=== PATIENT | female | born 1960 | race African-American/Black ===

== ENCOUNTER 2024-02-26 22:33 | Inpatient (IN) | payer OTHER, SELFPAY ==
[2024-02-26] VITALS (15 sets, daily range): BP systolic 181–222; BP diastolic 100–131; BMI 28.3
--- NOTE | 2024-02-26 20:54 | ED.GENMED ---
History of Present Illness
General
Chief Complaint: Swelling
Source: patient
Exam Limitations: none
Time Seen by Provider: 02/26/24 20:35
History of Present Illness
History of Present Illness:
This is a 63 year old female that comes in with c/o bilateral leg swelling and abd swelling. [facility]. States that she lives in [place] and about 2 weeks ago she started with swelling. State that she
then came to [place] on . State that the swelling has increased and is into her abd. States that she is occasionally SOB now the the abd swelling. State that she did take Metoprolol, Amlodipine and HCTZ but has not take this as she would not go out
when COVID started and her PCP would not reorder her medication unless she came in. Denies any fever, chills, chest pain, abd pain, nausea, vomiting, diarrhea, headache, dizziness, urinary burning.
Past History
Past History
ED Past Medical History: HTN; Negative Asthma, Hypercholesterolemia or NIDDM
ED Past Surgical History: None
Social History
Tobacco: Smoker
Alcohol: Occasional
Personal:
Living: alone
Review of Systems
Review of Systems
All Other Systems: ROS reviewed and negative except as documented in HPI and ROS
Constitutional: Reports no symptoms; Denies fever or chills
EENT: Reports no symptoms
Respiratory: Reports trouble breathing; Denies cough
Cardiac: Reports no symptoms; Denies chest pain
ABD/GI: Reports other (abd swelling ); Denies abdominal pain, nausea, vomiting or diarrhea
: Reports no symptoms; Denies dysuria, frequency or urgency
Musculoskeletal: Reports edema (Bilateral legs into the abd)
Skin: Reports no symptoms
Neurological: Reports no symptoms; Denies dizzy or headache
Psychiatric: Reports no symptoms
Phy Exam
General Physical Exam
General Presentation: no apparent distress
General age: appears stated age
General Skin: warm and dry
General Habitus: elderly
General Mental: alert
General Hydration: appears well hydrated
ENT Exam
ENT Exam: TM's normal, pharynx normal and neck supple
Eye Exam
Eye Exam: EOMI
Cardiovascular Exam
Cardiovascular Exam: regular rate/rhythm, no murmur and normal peripheral pulses
Pulmonary Exam
Pulmonary Exam: lungs clear, no respiratory distress, no rales, chest non tender, no crackles, no rhonchi, no wheezing and no cough
Gastrointestinal Exam
Gastrointestinal Exam: non tender, soft, no organomegaly, no pulsatile mass and other (Hypoactive bowel sounds, Abd pitting edema on flanks. )
Musculoskeletal Exam
Musculoskeletal Exam: full ROM and edema (+2 pitting edema from feet to thighs and into the abd. )
Skin Exam
Skin Exam: normal color, warm/dry, no petechia and other (Large palpable breast mass right sided from the 9pm to midnight position. )
Psychiatric Exam
Psychiatric Exam: normal mood/affect
Scores
Heart Failure Risk
Heart Failure Risk Score: Yes
History of Stroke or TIA: No
History of intubation for respiratory distress: No
Heart rate on ED arrival >/= 110: No
SaO2 <90% on arrival on room air: No
HR >/=110 during 3min walk test (or too ill to perform test): Yes
ECG has acute ischemic changes: No
Urea >/=12mmol/L (BUN 33.6mg/dL): No
Serum CO2>/=35mmol/L: No
Troponin I or T elevated to MO Level (0.4mg/dL): Yes
NT-proBNP >/=5,000ng/L (5,000pg/ml): Yes
HF Risk Score: 5
Admission Status: VERY HIGH RISK 39.8% Consider admission to hospital
Course
Orders/Labs/Results
Orders:
Orders
02/26/24 Breakfast
Cholesterol Lowering
Fluid Restriction: 1440 mL/day (48 oz)
Cholesterol Lowering: Sodium, 2 Gram
02/26/24 20:17
Electrocardiogram (*1) Urgent
Reason for Study: Other
Other Reason for Exam: Respiratory Distress
EKG- Treatment ONCE
02/26/24 20:54
CR Chest - 2 Views Urgent
Comment:
Reason For Exam: sob
US Legs, Bilateral [US Periph Venous LOWER Ext Fernando] Urgent
Comment:
Reason For Exam: sWELLING
02/26/24 21:00
Complete Blood Count/With Diff Urgent
Comprehensive Metabolic Panel Urgent
Ferritin Urgent
Comment: ADD ON
Iron Urgent
Comment: ADD ON
Magnesium Urgent
Comment: ADDON
NT-proBNP Urgent
TSH Reflex To Free T4 Urgent
Comment: ADD ON
Total Iron Binding Urgent
Comment: ADD ON
Troponin I Urgent
02/26/24 21:35
Furosemide [Lasix] 80 mg IV NOW STA
02/26/24 21:41
Amlodipine [Norvasc] 10 mg PO NOW STA
02/26/24 22:02
Add On- LAB Routine
Tests Added?: iron, ferritin, TIBC, iron % saturation
02/26/24 22:03
Add On- LAB Routine
Tests Added?: TSH with reflex to T4
02/26/24 22:15
Nitroglycerin 100 mg/250 ml [Nitroglycerin Premix] 100 mg in 250 ml IV PER PROTOCOL
Initial dose in mcg/min, then titrate:: 5
Titrate to keep:: Other
Titrate to keep other:: SBP < 180
Titrate by mcg/min:: 5 mcg/min, may increase by 10 mcg/min if dose > 20 mcg/min
Frequency of titrations (minutes):: every 3-5 minutes
Maximum dose in mcg/min:: 200
Begin to taper infusion when:: Remained at goal for 2hrs
Taper by mcg/min:: 5 mcg/min
Frequency of taper (minutes) if patient maintains goal:: 30
Taper to off?: Yes
If infusion off & no longer maintaining goal:: Contact Provider
02/26/24 22:18
Admit/Transfer Patient As Directed
Co-Sign Provider:
Level of Care: Inpatient admission
Assign to:: IMU- Intermediate Care
Physician / Group: Mahi Tillman
Diagnosis: hypertensive emergency
Reason for Hospitalization: hypertensive emergency, heart failure
Expected length of stay greater than two midnights?: Yes
ELOS- Estimated Length of Stay in days: 3
I certify the patient meets the requirements for IP care: Yes
PRN Pain Medication Management As Directed
May give lesser potent ordered pain med per pt: Yes
preference::
Protocol:: Medication orders for pain may be administered in a
manner that supports deferring to patient preference
when the pt is:
- Requesting an ordered lesser potent pain medication.
Least to most potent pain medications are defined
as: acetaminophen < NSAID < tramadol < opioids
(morphine, oxycodone, hydromorphone).
- Requesting a lesser dose of the same medication IF
ORDERED.
- Requesting a less intrusive route of administration
if both routes are prescribed by the provider (PO <
IV).
02/26/24 22:19
Code Status As Directed
Resuscitation Status: Full Code
02/26/24 22:20
Add On- LAB Routine
Tests Added?: magnesium
Potassium Chloride [KCl] 20 meq PO NOW STA
02/26/24 23:00
Flush (0.9% Sodium Chloride) [Flush (Nss)] See Dose Instructions IV PER PROTOCOL
02/26/24 23:05
UA Reflex to Culture [Urinalysis Reflex To Culture] Routine
Date Specimen was Collected: 02/26/24
Time Specimen was Collected: 23:02
Urine Creatinine Routine
Date Specimen was Collected: 02/26/24
Time Specimen was Collected: 23:03
Urine Sodium Routine
Date Specimen was Collected: 02/26/24
Time Specimen was Collected: 23:03
02/26/24 23:16
CARDIOLOGY CONSULT Routine
Consulting Provider: Ladarius Morales
Was physician already notified: No
Reason for consult: hypertensive emergency, new heart failure
Consult Notification Routine
Specialty to Notify: Cardiology
HF DIETARY CONSULT Routine
HF EDUCATOR CONSULT Routine
Comment:
Activity As Directed
Activity Level: As Tolerated
Intake/ Output As Directed
Frequency: Per unit guidelines
Patient Education As Directed
Type: CHF folder
Comment: give on admission. Document in Interdisciplinary Education record
Sleep Apnea Assessment by RN As Directed
Comment:
Physician Instructions:
Vital Signs As Directed
Frequency: Other
Additional Instructions:: Q12 or per unit guidelines if more frequent.
Weight As Directed
Frequency: Daily
Type of Scale: Standing Scale
Comment: Daily morning weight. If unable to stand, use balanced bed scale.
Weight As Directed
Frequency: Once
Type of Scale: Standing Scale
Comment: Upon Admission. If unable to stand, use balanced bed scale.
Pulse Ox/cont/shift [RESP] Routine
Quantity: 1
Special Instructions: Daily pulse oximetry at rest. If greater than 92% at rest also obtain pulse oximetry
while ambulating as tolerated.
DX Deep Vein Thrombosis Video Routine
02/27/24 00:00
Troponin I Urgent
02/27/24 06:00
Echo 2D MMode Color/Doppler IN AM
Reason for Study: hypertensive emergency
Basic Metabolic Panel IN AM
Cardiovascular Evaluation IN AM
Complete Blood Count/No Diff IN AM
Glycohemoglobin (HgbA1c) IN AM
Wgvum-[id number]-Pcjdkdo IN AM
Magnesium IN AM
Troponin I IN AM
02/27/24 08:00
Furosemide [Lasix] 40 mg IV BID AT 0800,1600
Heparin 5,000 units SC Q12
NIFEdipine EXTENDED RELEASE [Procardia Xl (Extended Release)] 30 mg PO DAILY
02/28/24 06:00
Basic Metabolic Panel IN AM
02/29/24 06:00
Basic Metabolic Panel IN AM
Abnormal Lab Results
02/26/24
21:00
RBC 3.80 L 10^6/uL
(4.20-5.40)
Hgb 9.3 L g/dL
(12.0-16.0)
Hct 29.7 L %
(37.0-47.0)
MCV 78.2 L fL
(81.0-99.0)
MCH 24.5 L pg
(27.0-31.0)
MCHC 31.3 L g/dL
(33.0-37.0)
RDW 20.6 H %
(11.5-14.5)
Absolute Lymphs (auto) 0.7 L 10^3/uL
(1.2-3.4)
Neutrophils % 77.3 H %
(42.2-75.2)
Lymphocytes % 11.9 L %
(20.5-51.1)
Chloride 109 H mmol/L
(98-107)
BUN 28 H mg/dl
(7-17)
Creatinine 1.6 H mg/dL
(0.6-1.0)
Iron 25 L ug/dl
(37-170)
% Saturation 8 L %
(20-50)
Troponin I 0.053 H* ng/ml
Albumin 3.2 L g/dl
(3.5-5.0)
02/26/24 21:00
02/26/24 21:00
H/H low, Anemia, Chloride slightly elevated. Acute renal insufficiency, Troponin elevated at 0.053, Pro-BNP >27,000
Vital Signs
Initial and Last Documented VS:
Initial Vital Signs
Temp Pulse Resp BP Pulse Ox
98.5 F 108 20 222/131 98
02/26/24 20:12 02/26/24 20:12 02/26/24 20:12 02/26/24 20:12 02/26/24 20:12
Last Documented Vital Signs
Temp Pulse Resp BP Pulse Ox
98.5 F 95 20 195/113 95
02/26/24 20:12 02/26/24 23:00 02/26/24 23:00 02/26/24 23:00 02/26/24 22:51
MDM/Problems Addressed
Differential Diagnosis Includes:
CHF,
MDM/Problems Addressed:
This is a 63 year old female that comes in with c/o swelling from the feet, into the legs and abd. States that this started about 2 weeks ago when she was in [place] and then she came here on 02/14/24. States that she as on Medication but COVID
messed her up as the PCP would not reorder medication for her.
Will get labs. Chest x-ray, and US.
Back into see patient. Explained that she will be admitted. Explained that she is in CHF and that her BP is very elevated.
Chronic conditions affecting care: HTN
Acute Exacerbation and/or Progression of Chronic Illness: HTN
*Radiology
Radiology exam reviewed: radiology read reviewed (cHEST-Congestive heart failure US-No evidence of right or left lower extremity deep venous thrombosis. Pulsatile waveforms suggesting possibility of elevated right-sided heart pressure or tricuspid
insufficiency. Large amount of bilateral lower extremity edema. )
*Pulse Oximetry
Patient hypoxic: no
*EKG
Interpreted by ED Provider?: Yes
Heart Rate: 89
Rate: normal
Rhythm: sinus
[place]: normal axis
Interval: normal interval
QRS Pattern: normal QRS
Ischemia: T-wave inversion (V5, V6, )
*Linux Kernel Engineer Interpretation
Rate: normal
Heart Rate: 93
Rhythm: sinus
*Critical Care Note
Total Time (30-74mins, 75-104mins- exclusive of procedures): Not Applicable
ED Attending Note
-
Portions of this chart may have been created with voice recognition software.� Occasional wrong word or��sound alike� substitutions may have occurred due to the inherent limitations of voice recognition software.
Discharge Plan
Departure
Patient Disposition: Admit
Date of Disposition: 02/26/24
Time of Disposition: 21:46
Admit to: Telemetry
Presentation/result/management discussed w/ accepting MD/DO: Hospitalist
Patient with high blood pressure during this ER visit?: Yes
Condition: Good
Covid-19: Not Applicable
Discharge Problem:
CHF (congestive heart failure), Hypertension, uncontrolled, Elevated troponin
Interventions
Interventions:
*Risk Screen - Suicide Last Done: 02/26/24 20:16
*General Assessment Last Done: 02/26/24 20:54
*Neglect/Abuse Screening Last Done: 02/26/24 20:16
ED- Fall Risk Assessment Last Done: 02/26/24 20:55
*ED COVID-19 Vaccine History Last Done: 02/26/24 20:16
ED- Cardiac Assessment Last Done: 02/26/24 20:55
ED- Pulmonary Assessment Last Done: 02/26/24 20:55
ED-Skin Assessment Last Done: 02/26/24 20:55
[2024-02-26 21:08] LABS: % Basophils 0.5 % (0-2); % Immature Granulocytes 0.3 % (0-0.5); % Lymphocytes 11.9 % (20.5-51.1); % Neutrophils 77.3 % (42.2-75.2); Absolute Eosinophils 0.1 10^3/uL (0-0.7); Absolute Lymphocytes 0.7 10^3/uL (1.2-3.4); Absolute Monocytes 0.6 10^3/uL (0.1-0.6); Absolute Neutrophils 4.8 10^3/uL (1.4-6.5); Hematocrit 29.7 % (37.0-47.0); Hemoglobin 9.3 g/dL (12.0-16.0); Mean Corp Hgb Conc. 31.3 g/dL (33.0-37.0); Mean Corpuscular Hgb 24.5 pg (27.0-31.0); Mean Corpuscular Volume 78.2 fL (81.0-99.0); Mean Platelet Volume 9.3 fL (7.4-10.4); Nucleated Red Blood Cells % 0 %; Platelet Count 291 10^3/uL (130-400); Red Cell Dist. Width 20.6 % (11.5-14.5); White Blood Cell Count 6.1 10^3/uL (4.8-10.8)
[2024-02-26 21:22] LABS: ALT (SGPT) 23 U/L (0-35); AST (SGOT) 31 U/L (14-36); Albumin 3.2 g/dl (3.5-5.0); Alkaline Phosphatase 124 U/L (38-126); Blood Urea Nitrogen 28 mg/dl (7-17); Calcium 8.5 mg/dl (8.4-10.2); Carbon Dioxide 23 mmol/L (22-30); Chloride 109 mmol/L (98-107); Estimated Creatinine Clearance 33 ml/min; Glucose 93 mg/dl (70-99); Potassium 3.8 mmol/L (3.5-5.1); Sodium 139 mmol/L (135-145); Total Bilirubin 0.7 mg/dl (0.2-1.3); Total Protein 6.3 g/dl (6.3-8.2); eGFR 35.79
[2024-02-26 21:34] LABS: NT-proBNP > 27000 pg/ml; Troponin I 0.053 ng/ml
[2024-02-26] MEDS: NORVASC 10 MG PO (21:48)
--- NOTE | 2024-02-26 21:48 | HPS.HSE ---
Addendum entered and electronically signed by Mahi Tillman MD 02/27/24 07:33:
typo; patient 63 yo woman
Original Note:
Family Physician
-
Family Physician: NOT KNOW UNKNOWN - PT DOES
Chief Complaint
-
swelling
History of Present Illness
Ms. Geovanna Gaspar is a 25 yo woman with hx HTN who presents to the ER with lower extremity and abdominal swelling.
Patient was prescribed Metoprolol, Amlodipine and HCTZ in past. She states she was due to see her PCP during Covid but missed appointment 2/2 isolation requirements and then never followed up over next 4 years, had appointment coming up. She lives
in [facility] and had plans to travel here to see family. She reports increased LE swelling prior to her flight last week. She has had increased lower extremity swelling up to her abdomen. + orthopnea and SOB with exertion. No chest
pain.
No headache. No focal weakness. No fevers/chills. No nausea/vomiting. No rash.
Medical History
Past Medical History
Past Medical History: Reports HTN
Past Surgical History: Reports Other
Social History
Tobacco: Smoker (7 cigarettes/day)
Alcohol: Occasional
Family History
Family History: Not pertinent
Allergies / Home Medications
Allergies reflects when Allergies were last updated in [employer].
Home Medications with original date entered in [facility]
Allergy/Medication List:
Allergies
Allergy/AdvReac Type Severity Reaction Status Date / Time
No Known Allergies Allergy Unverified 02/26/24 20:15
Home Medications
No Meds [No Current Medications] 02/26/24
Review of Systems
-
History Source: Patient
A 12 point ROS was completed and negative except as noted: Yes
Physical Exam
Vital Signs
Vital Signs
Temp Pulse Resp BP Pulse Ox
98.5 F 90 17 192/119 100
02/26/24 20:12 02/26/24 21:00 02/26/24 21:00 02/26/24 21:28 02/26/24 21:28
Physical Exam
General: No Apparent Distress and Conversant
HEENT: PERRLA
Respiratory: Rales
Cardiac: S1/S2, Regular Rhythm and JVD
GI: Non Tender and Other (edema )
Musculoskeletal: Edema, Left Lower Extremity and Edema, Right Lower Extremity
Skin: Warm and Dry; No Rash
Neuro: AO x 3
Psych: Calm
Laboratory Results
-
02/26/24 21:00
02/26/24 21:00
Laboratory Results
Total Bilirubin 0.7 mg/dl (0.2-1.3) 02/26/24 21:00
AST 31 U/L (14-36) 02/26/24 21:00
ALT 23 U/L (0-35) 02/26/24 21:00
Alkaline Phosphatase 124 U/L (38-126) 02/26/24 21:00
Troponin I 0.053 ng/ml H* 02/26/24 21:00
Data Reviewed
-
Diagnostic Radiology: Report Reviewed by me
Lab Data: Labs Reviewed by me
Impression/Plan
-
Ms. Geovanna Gaspar is a 25 yo woman with hx HTN who presents to the ER with lower extremity and abdominal swelling.
Triage VS: T 98.5, P 108, RR 20, BP 222/131, SpO2 98%
LABS: WBC 6.1, Hg 9.3, PLT 291, Na 139, K+ 3.8, Cl 109, BUN 28, Cr 1.6, liver enzymes WNL, Trop 0.053
MAR: amlodipine 10mg PO x 1, lasix 80mg IV x 1
EKG: NSR @ 89, poor R wave progression, TWI lateral leads, T W flattening anterior leads
CXR
IMPRESSION:
Congestive heart failure.
Hypertensive Emergency
Non-[place] Troponin Elevation
Heart Failure, Unknown EF
-admit to IMU
-s/p amlodipine in ER; will take days until full effect
-BP 222/131 at triage, now 190's. Will start IV nitroglycerin gtt in setting of heart failure with goal SBP 170's overnight
-start daily nifedipine tomorrow AM
-lasix 80mg IV ordered in ER
-continue 40mg IV BID starting tomorrow
-daily weights, strict I/O, fluid restriction
-TTE
-F/U LE US ordered now
-trend Troponins
-cardiology consult
CAMI versus CKD
-urine studies
-monitor closely with diuresis
DVT PPx hep subQ
FULL CODE
Total Critical Care Time 45 minutes. I was immediately available to the patient and staff. I personally examined, reviewed labs, diagnostic images/reports, interpretations, treatment plans, discussed patient care with other providers and family
or caregivers (if patient is unable to make decisions), entered orders as appropriate and documented the medical record.
[2024-02-26] MEDS: LASIX 80 MG IV (22:33)
[2024-02-26] MEDS: KCL 20 MEQ PO (22:38)
[2024-02-26 22:41] LABS: Iron 25 ug/dl (37-170)
[2024-02-26] MEDS: NITROGLYCERIN PREMIX 250 IV (22:41)
[2024-02-26 22:50] LABS: Percent Saturation 8 % (20-50); Total Iron Binding Capacity 306 ug/dl (265-497)
[2024-02-26 23:12] LABS: Urine Albumin Trace (Neg - Trace); Urine Bilirubin Negative (Negative); Urine Character Clear (Clear); Urine Color Yellow; Urine Glucose Negative (Negative); Urine Ketone Negative (Negative); Urine Leukocyte Trace (Negative); Urine Nitrite Positive (Negative); Urine Occult Blood Trace (Negative); Urine Specific Gravity 1.015 (<1.030); Urine Urobilinogen Negative (Neg - 1+)
[2024-02-26 23:26] LABS: TSH Reflex To Free T4 2.79 uIU/ml (0.47-4.68)
[2024-02-26 23:27] LABS: Urine Sodium 102 mmol/L (30-90)
[2024-02-26 23:30] LABS: Ferritin 26.4 ng/ml (11.1-264.0)
[2024-02-26 23:54] LABS: Urine Amorphous Seen; Urine Mucus Moderate; Urine Squamous Cell >30 /LPF (Few)
[2024-02-26 23:55] LABS: Urine Bacteria Many (Negative)
[2024-02-26 23:56] LABS: Urine White Cell 80-90 /HPF (0-5)
[2024-02-26 23:58] LABS: Urine Granular Cast >15 /LPF (0)
[2024-02-27] VITALS (64 sets, daily range): BP systolic 92–196; BP diastolic 64–110; BMI 27.5; BMI 25.6; BMI 24.9
--- NOTE | 2024-02-27 01:38 | PTCARENOTE ---
Rec'd pt from ED RN, AAOx3. Pt with elevated BP, nitro gtt in place through R AC IV at 15mcg. Pt requesting BP to void very frequently. Otherwise, pt denies complaints at this time. Assessment as documented. VS as documented, BP now <180 systolic.
This RN will titrate nitro gtt per protocol.
[2024-02-27 04:09] LABS: Troponin I 0.053 ng/ml
--- NOTE | 2024-02-27 04:18 | PTCARENOTE ---
SaO2 noted to drop to 86% on RA while sleeping, pt placed on 2L NC
[2024-02-27 07:06] LABS: Hematocrit 29.1 % (37.0-47.0); Hemoglobin 9.3 g/dL (12.0-16.0); Mean Corpuscular Hgb 24.7 pg (27.0-31.0); Mean Corpuscular Volume 77.4 fL (81.0-99.0); Mean Platelet Volume 9.5 fL (7.4-10.4); Platelet Count 285 10^3/uL (130-400); Red Blood Cell Count 3.76 10^6/uL (4.20-5.40); Red Cell Dist. Width 20.7 % (11.5-14.5); White Blood Cell Count 5.5 10^3/uL (4.8-10.8)
[2024-02-27 07:20] LABS: ALT (SGPT) 22 U/L (0-35); AST (SGOT) 31 U/L (14-36); Albumin 3.1 g/dl (3.5-5.0); Alkaline Phosphatase 97 U/L (38-126); Blood Urea Nitrogen 29 mg/dl (7-17); Calcium 8.5 mg/dl (8.4-10.2); Carbon Dioxide 26 mmol/L (22-30); Chloride 109 mmol/L (98-107); Direct Bilirubin 0.5 mg/dl (0.0-0.4); Estimated Creatinine Clearance 34 ml/min; Glucose 81 mg/dl (70-99); HDL Cholesterol 44 mg/dl; LDL Cholesterol, Calculated 72 mg/dl; Potassium 4.3 mmol/L (3.5-5.1); Sodium 140 mmol/L (135-145); Total Bilirubin 1.1 mg/dl (0.2-1.3); Total Cholesterol 132 mg/dl (50-199); Total Protein 6.1 g/dl (6.3-8.2); Triglyceride 81 mg/dl (10-149); Very Low Density Lipoprotein 16 mg/dl (0-30); eGFR 42.01
[2024-02-27 07:28] LABS: Troponin I 0.054 ng/ml
--- NOTE | 2024-02-27 08:04 | CON.CAR ---
Addendum entered and electronically signed by Zheng Lopez MD 02/27/24 13:42:
I saw and examined the patient.
The DEPARTMENT SECRETARY or PA's note was reviewed and I agree with the note.
Comment: General: Well developed, well nourished in NAD.
Neck: Supple, no JVD, HJR, carotids +2 B/L, no bruits bilaterally.
Heart: Non displaced PMI, RRR, no murmurs, No S3, S4, no rubs.
Lungs: scattered rhonchi
Extremities: No clubbing, cyanosis or edema bilaterally.
Neuro: Grossly nonfocal, awake, alert and oriented x3.
Geovanna has a h/o htn, tobacco use. She presented with abdominal bloating, edema, sob and orthopnea. She is admitted with acute systolic chf with EF of 35 to 40%. Will add Coreg. cont iv lasix. eventual edson/arb or entresto when RI resolved.
Echo suggestive of possible amyloid but only mild LVH. Will do prelim workup. consider cath Mon 03/01.
Original Note:
Consultation
Consultation Request
Date/Time Consultation Requested: 02/26/2204
Date/Time Consultation Performed: 02/27/2024
Requesting Provider: Dr. Tillman
Performing Provider: Jennifer Avila PA-C for Dr. Lopez
Reason for Consultation: Hypertension, heart failure
Medical History
-
History of Present Illness:
Patient is a 63 YOM w/ PMH of hypertension, tobacco abuse who has not been seen by medical radiation tech since start of COVID, lives in [place] and is visiting family on the [facility] who presented to [facility] 02/25 with abdominal bloating, lower
extremity edema, shortness of breath and orthopnea ongoing for a week. On arrival to ED she was noted to be very hypertension 222/131. CXR was showed moderate cardiomegaly with vascular congestion, small bilateral pleural effusions, mild bronchial
wall thicken and mild interstitial/airspace opacity. ProBNP >71960. Troponin 0.053, 0.054. ECG shows normal sinus rhythm with ST-T wave abnormality in lateral leads. She was given IV Lasix 80 mg and amlodipine 10 mg in ED. Started on NTG drip for
HTN. Of note patient had previously was taking Metoprolol, Amlodipine and HCTZ prior to COVID but has not taken in years.
LE venous Doppler negative for DVTs.
At time of this evaluation pt reports feeling much better with improved SOB and abd bloating.
She did see a industrial radiographer in [place] prior to COVID but not since. She thinks she had an echo.
PMH:
Hypertension
Tobacco abuse
Past Medical History
Past Medical History: Other (See HPI)
Past Surgical History: Other (Eye surgery in 2018 )
Social History
Tobacco: Smoker
Alcohol: Occasional
Drug: None
Personal: ( in 2022)
Living: With Family (son in [place])
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
Family History
Family History: Other (Mother CAD/CABG/HTN. Brother and sister have HTN)
Allergies / Home Medications
Allergy/AdvReac Type Severity Reaction Status Date / Time
No Known Allergies Allergy Unverified 02/26/24 20:15
�Medication �Instructions �Recorded �Confirmed �Type
No Meds [No Current Medications] 02/26/24 02/26/24 History
Review of Systems
-
History Source: Patient
All other systems: Negative unless noted
Physical Exam
Vital Signs
Temp Pulse Resp BP Pulse Ox
98.2 F 84 15 176/90 95
02/27/24 04:24 02/27/24 06:30 02/27/24 06:30 02/27/24 06:30 02/27/24 06:00
GEN: No distress, awake, Ox3, appears older than stated age
HEENT: supple, anicteric, mmm, poor dental hygiene with missing teeth, partial dentures
LUNGS: crackles at bases Lt>Rt, no wheezes/rales
CV: Reg, S1/S2, 1/6 syst murmur, no rubs or gallops
ABD: soft, BS+, NT/ND
EXT: +1-2 LE pitting edema
NEURO: Gross non-focal
SKIN: No rash, warm,dry
Lab Results
02/27/24 06:44
02/27/24 06:44
Troponin I 0.054 ng/ml H* 02/27/24 06:44
Dbx-O-Rrejmjgzfqn Pept > 65939 pg/ml 02/26/24 21:00
Impression / Plan
-
PCP: None local, Lives in [place]
Director Financial Planning: saw a industrial radiographer in [place] for HTN
Impression:
Presented to [facility] 02/25 with abdominal bloating, lower extremity edema, shortness of breath and orthopnea ongoing for a week
Acute heart failure with reduced EF, proBNP >97145
Hypertensive emergency
Cardiomyopathy, new diagnosis
CAMI
abnormal troponin
Anemia
Hypertension
Tobacco abuse
Echo 02/27/2024:preliminary EF 35-40%, official report to follow
Plan:
-Presented to [facility] 02/25 with abdominal bloating, lower extremity edema, shortness of breath and orthopnea ongoing for a week or so.
-Acute heart failure with reduced EF, proBNP>53945
-Continue IV diuresis, if scale accurate she has lost 10 lbs. Will recheck with standing weight, not bed scale
-CAMI, creat 1.6->1.4 improving with diuresis. Continue to monitor and trend
-Cardiomyopathy, unknown etiology as preliminary echo showing reduced EF 35-40%, official report to follow
-Start Coreg 6.25 mg BID for HTN and reduced EF
-Will eventually need EDSON-I/ARB or Entresto. Hold for now due to CAMI and ongoing diuresis
-NSVT on tele. Start Coreg and continue to monitor; K+ 4.3, mag 2.0. keep K+>4, mag >2
-Abnormal troponin, 0.053, 0.054 remains flat. Suspect non-ischemic myocardial injury due to hypertensive emergency and acute HF exacerbation. Continue to monitor and trend.
-Wean NTG gtt as BP allows
-Patient saw a industrial radiographer in [place] for HTN and had prior echo pre COVID . She will get name/contact info and will attempt to get records
HPI 02/27/2024:
Patient is a 63 YOM w/ PMH of hypertension, tobacco abuse who has not been seen by medical radiation tech since start of COVID, lives in [place] and is visiting family on the [facility] who presented to [facility] 02/25 with abdominal bloating, lower
extremity edema, shortness of breath and orthopnea ongoing for a week. On arrival to ED she was noted to be very hypertension 222/131. CXR was showed moderate cardiomegaly with vascular congestion, small bilateral pleural effusions, mild bronchial
wall thicken and mild interstitial/airspace opacity. ProBNP >26315. Troponin 0.053, 0.054. ECG shows normal sinus rhythm with ST-T wave abnormality in lateral leads. She was given IV Lasix 80 mg and amlodipine 10 mg in ED. Started on NTG drip for
HTN. Of note patient had previously was taking Metoprolol, Amlodipine and HCTZ prior to COVID but has not taken in years.
LE venous Doppler negative for DVTs.
Data Reviewed
-
EKG: Report Reviewed by me, Discussed with Physician, Discussed with Nurse and Discussed with Patient
Radiology: Report Reviewed by me, Discussed with Physician, Discussed with Nurse and Discussed with Patient
Ultrasound: Report Reviewed by me, Discussed with Physician, Discussed with Nurse and Discussed with Patient
Medical Tests (Nuc Med, Echo etc): Report Reviewed by me, Discussed with Physician, Discussed with Nurse and Discussed with Patient
Labs: Labs Reviewed by me, Discussed with Physician, Discussed with Nurse and Discussed with Patient
[2024-02-27 08:07] LABS: Hepatitis C Antibody Negative (Negative)
[2024-02-27] MEDS: HEPARIN 5000 UNITS SC ×2 (08:27→20:00)
[2024-02-27] MEDS: LASIX 40 MG IV ×2 (08:27→17:15)
[2024-02-27] MEDS: PROCARDIA XL (EXTENDED RELEASE) 30 MG PO (08:27)
[2024-02-27] MEDS: COREG 6.25 MG PO ×2 (12:57→20:00)
--- NOTE | 2024-02-27 14:34 | W.PN.HOSP.TC ---
Today's Communication/Plan
-
Continue Lasix
Assessment / Plan
Assessment / Plan
Ms. Geovanna Gaspar is a 25 yo woman with hx HTN who presents to the ER with lower extremity and abdominal swelling.
IMPRESSION:
Acute CHF Exacerbation:
Patient has acute (New onset) systolic/diastolic congestive heart failure
Patient presented with lower extremity swelling.
BNP level is elevated at >2700
Troponin level is 0.050
Continue IV diuresing in form of Lasix 40 mg twice daily
Daily weight.
Strict I's and O's.
Consulted cardiology.
Added carvedilol
Echo done 02/26 shows:
Normal left ventricular chamber size. Mild to moderately reduced left
ventricular systolic function. Left ventricular ejection fraction is 35-40%by
Day's method. Global hypokinesis. Mild concentric left ventricular
hypertrophy. Stage III diastolic dysfunction suggestive of restrictive filling
pattern and increased filling pressures. GLS demonstrates 'Bullseye' appearance
consistent with possible amyloidosis. GLS -5.8%.
Mitral sclerosis without stenosis. Moderate mitral regurgitation.
Indexed LA volume is moderately abnormal (42-48 mL/m2).
Trileaflet aortic valve. Aortic sclerosis without stenosis. Trace aortic
insufficiency.
Structurally normal tricuspid valve. Tricuspid valve opens normally. Mild to
moderate tricuspid regurgitation. Estimated pulmonary artery pressure of 59
mmHg. Assuming a right atrial pressure of 13 mmHg.
-Patient will need ischemic workup-possible cath on Thursday 03/01
Hypertensive Emergency
Amlodipine discontinued
Added carvedilol
Continue extended release nifedipine
Elevated troponin.
Seen by cardiology evaluate
Cardiac cath on Thursday 03/01
CAMI versus CKD
-Slightly improved
-monitor closely with diuresis
CODE STATUS: Full code
DVT prophylaxis: Heparin
Diet: cardiac diet
Anticipated Discharge: > 48 hours
Subjective/Interval History
-
Date of Service: February 27, 2024
Patient seen and examined at bedside, denies any chest pain , her shortness of breath improved, no abdominal pain, no nausea, no vomiting, no diarrhea or constipation.
Objective Data
-
Labs:
Laboratory Results
02/27/24
06:44
WBC 5.5
Hgb 9.3 L
Hct 29.1 L
Plt Count 285
Sodium 140
Potassium 4.3
Chloride 109 H
Carbon Dioxide 26
BUN 29 H
Creatinine 1.4 H
Glucose 81
Calcium 8.5
Total Bilirubin 1.1
AST 31
ALT 22
Alkaline Phosphatase 97
Vital Signs:
Vital Signs
Temp Pulse Resp BP Pulse Ox
98.1 F 89 24 140/72 98
02/27/24 11:20 02/27/24 12:57 02/27/24 12:15 02/27/24 12:57 02/27/24 12:16
I&O
02/26/24 02/27/24 02/28/24
06:59 06:59 06:59
Output Total 2875 / 2875 1000 / 1000
Balance -2875 / -2875 -1000 / -1000
Physical Exam
-
General: Well Developed and No Apparent Distress
HEENT: Normocephalic, Atraumatic and Moist Mucous Membranes
Respiratory: Rales, Rhonchi and Crackles
Cardiac: Regular Rhythm and S1/S2; Negative Murmur, Rub or Gallop
GI: Soft, Nontender, Nondistended and Normal Bowel Sounds; Negative Organomegaly
Rectal: Deferred by Provider
Musculoskeletal: Edema, Right Lower Extrem and Edema, Left Lower Extrem
Skin: Negative Rash
Neuro: Nonfocal/Grossly Intact
Psych: Calm
[2024-02-27 14:35] LABS: Glycohemoglobin (HgbA1c) 5.3 % (4.0-5.6)
--- NOTE | 2024-02-27 15:00 | PTCARENOTE ---
Received pt this am on Nitro gtt, weaning completed at 1400. Pt has remained off of IV Nitro since that time with current SBP 131. Pt with a run of Vtach 16 beats, Dr. Lopez aware. Pt started on Coreg today, continues on IV lasix. Pt denies any
c/o of pain or chest discomfort. Bilateral lower extremity edema less than upon admission. Abdomen less tight and pt's appetite is improving. OOb to chair for lunch and dinner. Lungs clear this afternoon and tolerting room air with pulse ox at 97%.
Cardiology requests standing scale weight, obtained and charted.
--- NOTE | 2024-02-27 16:20 | CM ---
Patient with Dx Acute CHF Exacerbation, Hypertensive Emergency, Elevated troponin. Plan Cardiac cath Mon 03/01. Room air. Receiving Nitro gtt, IV Lasix.
Met with patient who resides with her son in a 2nd floor apartment with 1 flight outside stairs in [facility].
Patient is here visiting family and staying with her brother Chaz/sister in law Ally in their 1 story house in [place]. She plans on returning to their house at d/c.
The patient has been independent in ADLs and ambulation using her SPC until about 2 weeks ago, when she developed SOB with weakness arms & legs, and had difficulty standing up from a chair.
Patient doesn't drive due to cataracts and orders groceries online at home.
Her son Ion is available to assist her as needed.
DME - SPC
No prior VN or SNF.
PCP - none
Pharmacy - [facility] in [facility]
Patient understands cannot arrange VN without PCP, she states she doesn't want VN for SN.
No CM d/c needs identified at present.
Plan d/c to brother's house.
[2024-02-27] MEDS: FLUSH (NSS) 2 FLUSH IV (17:16)
--- NOTE | 2024-02-27 21:25 | PTCARENOTE ---
Received pt at change of shift. Pt was OOB to chair offering no complaints. Assist x1 to bed. Pt states she was not BELLA but pt appears to have increased WOB on ambulation. Remains on RA with pulse ox 93%. Crackles in b/l bases. Resting in bed
with call ruiz in reach.
[2024-02-28] VITALS (25 sets, daily range): BP systolic 115–167; BP diastolic 65–97; BMI 24.0
[2024-02-28 07:27] LABS: Blood Urea Nitrogen 28 mg/dl (7-17); Calcium 8.1 mg/dl (8.4-10.2); Carbon Dioxide 30 mmol/L (22-30); Chloride 104 mmol/L (98-107); Estimated Creatinine Clearance 34 ml/min; Glucose 79 mg/dl (70-99); Potassium 3.6 mmol/L (3.5-5.1); Sodium 138 mmol/L (135-145); eGFR 42.01
--- NOTE | 2024-02-28 09:17 | W.PN.CARDCBS ---
Addendum entered and electronically signed by Zheng Lopez MD 02/28/24 12:09:
cont prelim workup for possible amyloid - UPEP and SPEP
Addendum entered and electronically signed by Zheng Lopez MD 02/28/24 10:26:
I saw and examined the patient.
The [employer] or PA's note was reviewed and I agree with the note.
Comment: General: Well developed, well nourished in NAD.
Neck: Supple, no JVD, HJR, carotids +2 B/L, no bruits bilaterally.
Heart: Non displaced PMI, RRR, no murmurs, No S3, S4, no rubs.
Lungs: Scattered rhonchi
Extremities: No clubbing, cyanosis or edema bilaterally.
Neuro: Grossly nonfocal, awake, alert and oriented x3.
She continues to improve. She had bradycardia and desaturation during the night and required oxygen. Will continue IV Lasix for now. Creatinine continues to improve slowly to 1.4. Discussed with patient and called her brother Chaz at her
request. I feel cardiac catheterization should be done on Thursday 03/01 to exclude CAD given her tobacco abuse. CAD is the most common cause of cardiomyopathy. Will give 325 aspirin now and add baby aspirin daily. She and her brother are agreeable
to catheterization and will keep n.p.o. after midnight on Friday night. As far as cardiomyopathy will increase Coreg given episode of nonsustained V. tach. Reluctant to add EDSON inhibitor or ARB or Entresto given renal insufficiency which is
improving. Eventually will add EDSON/ARB or Entresto. Also consider Aldactone depending on pressure and renal function. Discussed with nursing as well. Will follow which might be due to sleep apnea.
Original Note:
Today's Communication / Plan
-
Continue IV lasix
Continue Coreg
Possible [facility] 03/01.
Impression / Plan
-
PCP: None local, Lives in [place]
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
Impression:
Presented with abdominal bloating, edema, and SOB
Acute HFrEF
Hypertensive emergency
Cardiomyopathy, new diagnosis
NSVT
CAMI
Elevated troponin
Anemia
Hypertension
Tobacco abuse
Echo 02/27/2024: EF 35-40%, global hypokinesis, mild cLVH, stage III diastolic dysfunction, GLS demonstrates 'Bullseye' appearance, consistent with possible amyloidosis. GLS -5.8%, moderate MR, aortic sclerosis without stenosis, trace AI, mild to mod
TR, estimated PAP 59 mmHg
Plan:
-Presented with abdominal bloating, lower extremity edema, shortness of breath and orthopnea ongoing for a week or so. Admitted with acute heart failure. ProBNP > 27,000.
-Diuresing with IV lasix 40mg BID. Weight down 20lbs if accurate, down to 135lbs 02/27.
-Creat stable overnight at 1.4. Continue to follow with diuresis
-Follow daily weights, I&Os.
-CM noted with EF 35-40% by echo 02/26. New diagnosis.
-Continue medical therapy with Coreg 6.25mg BID. Eventually consider EDSON/ARB/Entresto as renal function improves.
-Elevated troponin noted, flat at 0.054. Suspect non-ischemic myocardial injury due to hypertensive emergency and acute HF exacerbation.
-Given new CM with elevated troponin, may consider cardiac catheterization on Friday, 03/01.
-NSVT noted on review of telemetry. Will continue Coreg. May consider increasing dose to 12.5mg BID as BP has been elevated.
-Workup in process for possible amyloidosis given echo findings.
-K 3.6, will replete with ongoing diuresis.
-Patient saw a infrastructure design engineer in [place] for HTN and had prior echo pre COVID . She will get name/contact info and will attempt to get records
HPI 02/27/2024:
Patient is a 63 YOM w/ PMH of hypertension, tobacco abuse who has not been seen by nuclear medical tech since start of COVID, lives in [place] and is visiting family on the [facility] who presented to [facility] 02/25 with abdominal bloating, lower
extremity edema, shortness of breath and orthopnea ongoing for a week. On arrival to ED she was noted to be very hypertension 222/131. CXR was showed moderate cardiomegaly with vascular congestion, small bilateral pleural effusions, mild bronchial
wall thicken and mild interstitial/airspace opacity. ProBNP >22807. Troponin 0.053, 0.054. ECG shows normal sinus rhythm with ST-T wave abnormality in lateral leads. She was given IV Lasix 80 mg and amlodipine 10 mg in ED. Started on NTG drip for
HTN. Of note patient had previously was taking Metoprolol, Amlodipine and HCTZ prior to COVID but has not taken in years.
LE venous Doppler negative for DVTs.
Progress Note - Boiler Engineer
Subjective
Date of Service: February 28, 2024
Feeling much better. Diuresing well and breathing/bloating and edema are improving.
Objective
Labs:
02/27/24 06:44
02/28/24 06:10
Labs
Hgb 9.3 g/dL (12.0-16.0) L 02/27/24 06:44
Hct 29.1 % (37.0-47.0) L 02/27/24 06:44
Plt Count 285 10^3/uL (130-400) 02/27/24 06:44
Sodium 138 mmol/L (135-145) 02/28/24 06:10
Potassium 3.6 mmol/L (3.5-5.1) 02/28/24 06:10
BUN 28 mg/dl (7-17) H 02/28/24 06:10
Creatinine 1.4 mg/dL (0.6-1.0) H 02/28/24 06:10
Glucose 79 mg/dl (70-99) 02/28/24 06:10
Troponins
02/26/24 02/27/24 02/27/24
21:00 03:15 06:44
Troponin I 0.053 H* 0.053 H* 0.054 H*
02/27/24
11:27
Troponin I 0.050 H*
Vital Signs and I&O:
Vital Signs
Temp Pulse Resp BP Pulse Ox
98.2 F 60 13 157/82 100
02/28/24 07:00 02/28/24 05:00 02/28/24 05:00 02/28/24 05:00 02/28/24 01:00
Vital Signs
Temp Pulse Resp BP Pulse Ox
98.2 F 60 13 157/82 100
02/28/24 07:00 02/28/24 05:00 02/28/24 05:00 02/28/24 05:00 02/28/24 01:00
Intake & Output
02/26/24 02/27/24 02/28/24 02/29/24
06:59 06:59 06:59 06:59
Intake Total 1198 / 1198
Output Total 2875 / 2875 2150 / 2150
Balance -2875 / -2875 -952 / -952
Physical Exam
Physical Exam
GEN: No distress, awake, alert, oriented x3
HEENT: supple, anicteric, mmm, poor dental hygiene with missing teeth, partial dentures
LUNGS: crackles at bases, no wheezes/rales
CV: Reg, S1/S2, 1/6 syst murmur
EXT: No clubbing or cyanosis, +1 LE edema
NEURO: Gross non-focal
SKIN: No rash, warm, dry
[2024-02-28] MEDS: HEPARIN 5000 UNITS SC ×2 (09:42→20:58)
[2024-02-28] MEDS: COREG 6.25 MG PO (09:52)
[2024-02-28] MEDS: LASIX 40 MG IV ×2 (09:53→17:29)
[2024-02-28] MEDS: PROCARDIA XL (EXTENDED RELEASE) 30 MG PO (10:53)
[2024-02-28] MEDS: LOW STRENGTH ASPIRIN 324 MG PO (10:53)
[2024-02-28] MEDS: KCL 40 MEQ PO (10:55)
--- NOTE | 2024-02-28 12:51 | W.PN.HOSP.TC ---
Today's Communication/Plan
-
IV lasix
trend cr
cards recs
Assessment / Plan
Assessment / Plan
Ms. Geovanna Gaspar is a 25 yo woman with hx HTN who presents to the ER with lower extremity and abdominal swelling.
IMPRESSION:
Acute CHF Exacerbation:
Patient has acute (New onset) systolic/diastolic congestive heart failure
Patient presented with lower extremity swelling.
BNP level is elevated at >2700
Troponin level is 0.050
Continue IV diuresing in form of Lasix 40 mg twice daily
Daily weight.
Strict I's and O's.
Consulted cardiology.
Added carvedilol. Continue asa.
Echo done 02/26 shows:
Normal left ventricular chamber size. Mild to moderately reduced left
ventricular systolic function. Left ventricular ejection fraction is 35-40%by
Day's method. Global hypokinesis. Mild concentric left ventricular
hypertrophy. Stage III diastolic dysfunction suggestive of restrictive filling
pattern and increased filling pressures. GLS demonstrates 'Bullseye' appearance
consistent with possible amyloidosis. GLS -5.8%.
Mitral sclerosis without stenosis. Moderate mitral regurgitation.
Indexed LA volume is moderately abnormal (42-48 mL/m2).
Trileaflet aortic valve. Aortic sclerosis without stenosis. Trace aortic
insufficiency.
Structurally normal tricuspid valve. Tricuspid valve opens normally. Mild to
moderate tricuspid regurgitation. Estimated pulmonary artery pressure of 59
mmHg. Assuming a right atrial pressure of 13 mmHg.
Cath on friday.
Hypertensive Emergency
Amlodipine discontinued
Added carvedilol
Continue extended release nifedipine
Elevated troponin.
Seen by cardiology evaluate
Cardiac cath on Thursday 03/01
CAMI versus CKD
-Slightly improved
-monitor closely with diuresis. May need to hold diuresis if Cr bumps as will be underdoing cath.
CODE STATUS: Full code
DVT prophylaxis: Heparin
Diet: cardiac diet
d/w with multiple family members at bedside
Anticipated Discharge: > 48 hours
Subjective/Interval History
-
Date of Service: February 28, 2024
passing increasing amount of urine
no chest pain
Objective Data
-
Labs:
Laboratory Results
02/28/24
06:10
Sodium 138
Potassium 3.6
Chloride 104
Carbon Dioxide 30
BUN 28 H
Creatinine 1.4 H
Glucose 79
Calcium 8.1 L
Vital Signs:
Vital Signs
Temp Pulse Resp BP Pulse Ox
98.5 F 73 13 151/88 97
02/28/24 11:00 02/28/24 10:53 02/28/24 05:00 02/28/24 10:53 02/28/24 11:31
I&O
02/27/24 02/28/24 02/29/24
06:59 06:59 06:59
Intake Total 1198 / 1198
Output Total 2875 / 2875 2150 / 2150
Balance -2875 / -2875 -952 / -952
--- NOTE | 2024-02-28 16:15 | PTCARENOTE ---
Assumed care of pt this am. Received on 2L NC with pulse ox 98%. weaned to room air and desaturations 88% noted during sleeping (while nodding off in chair), pulse ox >95% while awake. O2 applied on 2L during sleep time. Tachypnea with activity. AM
meds given a bit late this am after discussion of plan of care with Dr. 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 Medications administered per updated orders. Pt denies chest pain or any discomfort. Pt denies need
for nicoderm patch, she was still smoking prior to admission (approx3-6 cigarettes a day), pt has declined smoking sensation as she reports she does not 'even crave one' at this time. Plan for cardiac cath reviewed with her by Dr. Lopez and pt is
in agreement to follow through here at prior to returning to [place]. Pt has support from son and her brother. Appetite has improved as her edema has decreased in abdomen and legs. Pt ambulates with 1 assist and single point as prior to
admission. Pt feels weak but steady
[2024-02-28] MEDS: COREG 12.5 MG PO (20:58)
[2024-02-29] VITALS (18 sets, daily range): BP systolic 103–168; BP diastolic 56–94; BMI 24.0; BMI 23.7
--- NOTE | 2024-02-29 00:24 | PTCARENOTE ---
Pt AAOx3, VSS. This RN placed 2L on pt for SaO2<90 while sleeping. Pt voiding large amounts of clear urine with incontinence at times. This RN changed soiled bedsheets and gown, placed purewick HS. Pt denies complaints at this time.
[2024-02-29 06:10] LABS: Blood Urea Nitrogen 27 mg/dl (7-17); Calcium 7.9 mg/dl (8.4-10.2); Carbon Dioxide 33 mmol/L (22-30); Chloride 102 mmol/L (98-107); Estimated Creatinine Clearance 31 ml/min; Glucose 73 mg/dl (70-99); Potassium 3.8 mmol/L (3.5-5.1); Sodium 139 mmol/L (135-145); eGFR 38.67
[2024-02-29] MEDS: PROCARDIA XL (EXTENDED RELEASE) 30 MG PO (08:21)
[2024-02-29] MEDS: HEPARIN 5000 UNITS SC ×2 (08:22→19:36)
[2024-02-29] MEDS: LOW STRENGTH ASPIRIN 81 MG PO (08:22)
[2024-02-29] MEDS: COREG 12.5 MG PO ×2 (08:22→19:35)
[2024-02-29] MEDS: FLUSH (NSS) 1 FLUSH IV (08:23)
[2024-02-29] MEDS: LASIX IV (10:07)
--- NOTE | 2024-02-29 10:58 | W.PN.HOSP.TC ---
Today's Communication/Plan
-
DC Lasix trend creatinine
MANAGER CODING.o. past midnight
Cardiac catheterization Pending creatinine in the morning
Assessment / Plan
Assessment / Plan
Ms. Geovanna Gaspar is a 63 yo woman with hx HTN who presents to the ER with lower extremity and abdominal swelling.
IMPRESSION:
Acute HFpEF and HFrEF exacerbation
Patient presented with lower extremity swelling.
BNP level is elevated at >2700
Troponin level is 0.050
Lasix 40 mg twice daily has been held in the setting of mild bump in creatinine and cardiac catheterization planned for morning.
Daily weight.
Strict I's and O's.
Consulted cardiology.
Added carvedilol. Continue asa.
Cath on friday.
Prelim work up initiated as concern for amyloid-UPEP/SPEP pending.
Hypertensive Emergency
Amlodipine discontinued
Added carvedilol
Continue extended release nifedipine. May need to adjust further dosing for systolic BP elevated.
Elevated troponin likely type II MT.
Seen by cardiology evaluate
Cardiac cath on Thursday 03/01
CAMI versus CKD
-Slightly improved
-monitor closely with diuresis. May need to hold diuresis if Cr bumps as will be underdoing cath.
UTI gram negative bacilli
start rocephin
Tobacco abuse
CODE STATUS: Full code
DVT prophylaxis: Heparin
Diet: cardiac diet
d/w with multiple family members at bedside on 02/27
d/w with cards
Transfer out of IMU
Anticipated Discharge: > 48 hours
Subjective/Interval History
-
Date of Service: February 29, 2024
feeling better
Objective Data
-
Labs:
Laboratory Results
02/29/24
05:21
Sodium 139
Potassium 3.8
Chloride 102
Carbon Dioxide 33 H
BUN 27 H
Creatinine 1.5 H
Glucose 73
Calcium 7.9 L
Vital Signs:
Vital Signs
Temp Pulse Resp BP Pulse Ox
98.1 F 70 20 166/94 93
02/29/24 07:00 02/29/24 07:00 02/29/24 07:00 02/29/24 07:00 02/29/24 08:00
I&O
02/28/24 02/29/24 03/01/24
06:59 06:59 06:59
Intake Total 1198 / 1198 875 / 875
Output Total 2150 / 2150 1475 / 1475
Balance -952 / -952 -600 / -600
Physical Exam
-
General: No Apparent Distress
HEENT: Normocephalic, Atraumatic, Moist Mucous Membranes and Other (poor oral dentition)
Respiratory: Rales, Rhonchi and Crackles
Cardiac: Regular Rhythm and S1/S2; Negative Murmur, Rub or Gallop
GI: Soft, Nontender, Nondistended and Normal Bowel Sounds; Negative Organomegaly
Rectal: Deferred by Provider
Musculoskeletal: Edema, Right Lower Extrem and Edema, Left Lower Extrem
Skin: Negative Rash
Neuro: Awake, No Motor Deficits and Nonfocal/Grossly Intact
Psych: Calm
Data Reviewed
-
Medical Tests (Nuc Med, Echo etc): Report Reviewed by me (Echo done 02/26 shows: Normal left ventricular chamber size. Mild to moderately reduced left ventricular systolic function. Left ventricular ejection fraction is 35-40%by Day's method.
Global hypokinesis. Mild concentric left ventricular hypertrophy. Stage III diastolic dysfunction suggest)
[2024-02-29] MEDS: ROCEPHIN 1000 MG IV (12:23)
[2024-02-29] MEDS: STERILE WATER FOR INJECTION 10 ML IV (12:23)
--- NOTE | 2024-02-29 13:02 | W.PN.CARDCBS ---
Today's Communication / Plan
-
Hold Lasix with renal insufficiency
Plan for cardiac catheterization on 03/01 if renal function is stable
Preliminary workup for amyloidosis in progress
Impression / Plan
-
PCP: None local, Lives in [place]
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
Impression:
Presented with abdominal bloating, edema, and SOB
Acute HFrEF
Hypertensive emergency
Cardiomyopathy, new diagnosis
NSVT
CAMI
Elevated troponin
Anemia
Hypertension
Tobacco abuse
Echo 02/27/2024: EF 35-40%, global hypokinesis, mild cLVH, stage III diastolic dysfunction, GLS demonstrates 'Bullseye' appearance, consistent with possible amyloidosis. GLS -5.8%, moderate MR, aortic sclerosis without stenosis, trace AI, mild to mod
TR, estimated PAP 59 mmHg
Plan:
She appears improved from a CHF standpoint. Unclear if weight is down is much as 22 pounds since admission. Will hold Lasix for now with mild renal insufficiency.
Continue medical therapy with Coreg 6.25mg BID. Eventually consider EDSON/ARB/Entresto as renal function improves.
Plan on cardiac catheterization on 03/01 if renal function okay. Aspirin has been started. She has longstanding tobacco abuse and could have CAD as the cause of her cardiomyopathy. Also preliminary workup for amyloidosis is in progress
She remains hypertensive. Reluctant to add EDSON inhibitor or ARB with renal insufficiency. Will increase Procardia if remains hypertensive but blood pressure was improved after morning medicines. Could consider changing to Norvasc.
HPI 02/27/2024:
Patient is a 63 YOM w/ PMH of hypertension, tobacco abuse who has not been seen by medical office representative since start of COVID, lives in [place] and is visiting family on the [facility] who presented to [facility] 02/25 with abdominal bloating, lower
extremity edema, shortness of breath and orthopnea ongoing for a week. On arrival to ED she was noted to be very hypertension 222/131. CXR was showed moderate cardiomegaly with vascular congestion, small bilateral pleural effusions, mild bronchial
wall thicken and mild interstitial/airspace opacity. ProBNP >90500. Troponin 0.053, 0.054. ECG shows normal sinus rhythm with ST-T wave abnormality in lateral leads. She was given IV Lasix 80 mg and amlodipine 10 mg in ED. Started on NTG drip for
HTN. Of note patient had previously was taking Metoprolol, Amlodipine and HCTZ prior to COVID but has not taken in years.
LE venous Doppler negative for DVTs.
Progress Note - Motorcycle Repair Shop Supervisor
Subjective
Date of Service: February 29, 2024
no complaints
Objective
Labs:
02/27/24 06:44
02/29/24 05:21
Labs
Hgb 9.3 g/dL (12.0-16.0) L 02/27/24 06:44
Hct 29.1 % (37.0-47.0) L 02/27/24 06:44
Plt Count 285 10^3/uL (130-400) 02/27/24 06:44
Sodium 139 mmol/L (135-145) 02/29/24 05:21
Potassium 3.8 mmol/L (3.5-5.1) 02/29/24 05:21
BUN 27 mg/dl (7-17) H 02/29/24 05:21
Creatinine 1.5 mg/dL (0.6-1.0) H 02/29/24 05:21
Glucose 73 mg/dl (70-99) 02/29/24 05:21
Troponins
02/26/24 02/27/24 02/27/24
21:00 03:15 06:44
Troponin I 0.053 H* 0.053 H* 0.054 H*
02/27/24
11:27
Troponin I 0.050 H*
Vital Signs and I&O:
Vital Signs
Temp Pulse Resp BP Pulse Ox
98.3 F 65 16 118/64 96
02/29/24 11:00 02/29/24 12:00 02/29/24 12:00 02/29/24 12:00 02/29/24 12:00
Vital Signs
Temp Pulse Resp BP Pulse Ox
98.3 F 65 16 118/64 96
02/29/24 11:00 02/29/24 12:00 02/29/24 12:00 02/29/24 12:00 02/29/24 12:00
Intake & Output
02/27/24 02/28/24 02/29/24 03/01/24
06:59 06:59 06:59 06:59
Intake Total 1198 / 1198 875 / 875
Output Total 2875 / 2875 2150 / 2150 1475 / 1475
Balance -2875 / -2875 -952 / -952 -600 / -600
Physical Exam
Physical Exam
General: Well developed, well nourished in NAD.
Neck: Supple, no JVD, HJR, carotids +2 B/L, no bruits bilaterally.
Heart: Non displaced PMI, RRR, no murmurs, No S3, S4, no rubs.
Lungs: Scattered rhonchi
Extremities: No clubbing, cyanosis or edema bilaterally.
Neuro: Grossly nonfocal, awake, alert and oriented x3.
--- NOTE | 2024-02-29 14:00 | PTCARENOTE ---
Assumed care of patient at 0700. Aox3, pleasant, motivated. NSR/SB on telemetry, HR 50-60s. BP elevated prior to AM scheduled meds, but trended down after receiving Procardia, Coreg, see MAR. Able to ambulate to chair, bathroom w/ assistance x1 and
cane, makes needs known appropriately. Provided patient w/ scale after discussing weighing self daily. Orders to transfer to IVU noted. Report given to IVU TANJA Barnes. Patient transferred to room 2245 w/ all belongings.
--- NOTE | 2024-02-29 14:07 | PTCARENOTE ---
received pt as transfer, pt is sr/sb on the monitor, hr in the 60s, vss. pt offers no complaints at this time. pt oob to chair. family visiting at bedside. pt educated on plan of care and pt verbalized understanding. call ruiz within reach.
[2024-03-01] VITALS (13 sets, daily range): BP systolic 136–172; BP diastolic 58–90; BMI 23.9
[2024-03-01 04:02] LABS: Blood Urea Nitrogen 30 mg/dl (7-17); Calcium 8.1 mg/dl (8.4-10.2); Carbon Dioxide 33 mmol/L (22-30); Chloride 101 mmol/L (98-107); Estimated Creatinine Clearance 31 ml/min; Glucose 78 mg/dl (70-99); Magnesium 1.9 mg/dl (1.6-2.3); Sodium 137 mmol/L (135-145); eGFR 38.67
[2024-03-01] MEDS: PROCARDIA XL (EXTENDED RELEASE) 30 MG PO (07:33)
[2024-03-01] MEDS: COREG 12.5 MG PO ×2 (07:34→19:31)
[2024-03-01] MEDS: HEPARIN 5000 UNITS SC ×2 (07:34→19:32)
[2024-03-01] MEDS: LOW STRENGTH ASPIRIN 81 MG PO (07:34)
--- NOTE | 2024-03-01 08:28 | W.PN.UPDATE ---
Update Note
Progress Note Update
Attending addendum:
Rectal exam: Small amount of stool / mucous in rectal vault. Heme test negative
--- NOTE | 2024-03-01 08:36 | PTCARENOTE ---
Addendum entered by Ion Olguin RN 03/01/24 09:00:
Dr. Butcher performed fecal occult heme test on pt and test was negative before taking pt for cath.
Original Note:
Rec'd pt this AM. Pt in NSR with HR in 70's and elevated blood pressure with systolic in the 170's before 8AM meds. Pt understand use of heparin therapy and medication regimen. Pt denies any pain and was NPO after midnight for procedure. Lasix
was held for elevated Creatinine and brine room laborer aware. laborer golf course called for report at 8AM. Pt left for brine room laborer at 8:25 and verbalized understanding of procedure.
[2024-03-01 08:38] LABS: 24 Hour Urine Total Volume Random mL; Urine Collection Length Random hr; Urine Free Kappa Light Chains 28.13 mg/L (0.00-32.90); Urine Free Lambda Light Chains 4.31 mg/L (0.00-3.79)
--- NOTE | 2024-03-01 09:43 | ITS.CL.CATH ---
Horse Trekking Guide - Catheterization
Cardiac Catheterization
Procedure Report:
LEFT HEART CATHETERIZATION
Date of Procedure: March 01, 2024
Referring: Dr. Zheng Lopez
PROCEDURES:
1. Left heart catheterization with coronary angiography
INDICATION: This is a 63-year-old female who lives in [place] and was in the immediate area visiting family. She presented to [facility] for evaluation of lower extremity edema and shortness of breath. She was found to be in heart
failure and an echocardiogram was notable for mildly reduced left ventricular systolic function estimated between 35 and 40% with restrictive filling pattern. She was gently diuresed with improvement in lower extremity edema and shortness of
breath. Troponin measured above the 95th percentile and she is now referred for coronary angiography.
ACCESS: Right radial artery, 6 Albanian sheath
HEMODYNAMICS : (mmHg)
AO (s/d) : 132/60, 85
LV (s/d) : 132/10
LVEDP : 17
CORONARY FINDINGS
DOMINANCE: Left
LEFT MAIN: Large caliber with mild distal tapering
LEFT ANTERIOR DESCENDING: The LAD arises normally from the left main and runs in the anterior interventricular groove. The LAD is tortuous throughout its course with only minor luminal irregularities and no high-grade focal obstructive stenosis.
The LAD wraps completely around the apex the majority of the inferior wall.
RAMUS: Large caliber with minor luminal irregularities, tortuous
CIRCUMFLEX: The circumflex is a medium caliber, dominant vessel supplying a medium caliber PDA. A myocardial bridge is noted in the mid PDA
RIGHT CORONARY ARTERY: Not identified. The entirety of the inferior wall is supplied by a wrap around left anterior descending and dominant circumflex.
VENTRICULOGRAPHY: Not done due to elevated creatinine
RADIATION SUMMARY: Fluoro Time (min): 4.7, Dose (mGy): 115.3, DAP (Gy.cm2) : 9.2
Closure Device: TR band
CONCLUSIONS
1. Nonobstructive coronary disease
RECOMMENDATIONS
1. Medical management for LV dysfunction
2. Needs aggressive blood pressure control.
Copy to: Dr. Nevaeh Flores
[2024-03-01] MEDS: NSS 500 IV (09:47)
[2024-03-01] MEDS: NORVASC 5 MG PO (10:17)
[2024-03-01] MEDS: STERILE WATER FOR INJECTION 10 ML IV (12:52)
[2024-03-01] MEDS: ROCEPHIN 1000 MG IV (12:52)
--- NOTE | 2024-03-01 15:42 | PTCARENOTE ---
when assessing patient she has a large rock hard lump on right breast. when asked patient , patient stated that she has had it for at least 2 months, and has not had anyone look at it. TT Dr. Nelson to let him aware.
--- NOTE | 2024-03-01 18:32 | W.PN.HOSP.TC ---
Addendum entered and electronically signed by Aaron Nelson MD 03/02/24 07:24:
correction, RN who assisted on breast exam was Bee Downey RN
Original Note:
Today's Communication/Plan
-
due to breast lesion, will hold dc
continue current BP Rx
Assessment / Plan
Assessment / Plan
Ms. Geovanna Gaspar is a 63 yo woman with hx HTN who presents to the ER with lower extremity and abdominal swelling.
IMPRESSION:
Acute HFrEF exacerbation
Echo: Normal left ventricular chamber size. Mild to moderately reduced left
ventricular systolic function. Left ventricular ejection fraction is 35-40%by
Day's method. Global hypokinesis. Mild concentric left ventricular
hypertrophy. Stage III diastolic dysfunction suggestive of restrictive filling
pattern and increased filling pressures. GLS demonstrates 'Bullseye' appearance
consistent with possible amyloidosis. GLS -5.8%.
Mitral sclerosis without stenosis. Moderate mitral regurgitation.
Indexed LA volume is moderately abnormal (42-48 mL/m2).
Trileaflet aortic valve. Aortic sclerosis without stenosis. Trace aortic
insufficiency.
Structurally normal tricuspid valve. Tricuspid valve opens normally. Mild to
moderate tricuspid regurgitation. Estimated pulmonary artery pressure of 59
mmHg. Assuming a right atrial pressure of 13 mmHg.
Patient presented with lower extremity swelling.
BNP level [place] elevated at >70439
Troponin level is 0.050
Lasix 40 mg twice daily has been held in the setting of mild bump in creatinine and cardiac catheterization
Daily weight.
Strict I's and O's.
Consulted cardiology.
Added carvedilol. Continue asa.
Cath: 1. Nonobstructive coronary disease
RECOMMENDATIONS
1. Medical management for LV dysfunction
2. Needs aggressive blood pressure control.
Prelim work up initiated as concern for amyloid-UPEP/SPEP pending.
Hypertensive Emergency
Amlodipine discontinued
Added carvedilol
Continue extended release nifedipine. May need to adjust further dosing for systolic BP elevated.
BP currently 139/70
Elevated troponin likely type II [place].
Seen by cardiology evaluate
CAMI versus CKD
-Slightly improved
-monitor closely with diuresis.
1.6-->1.4-->1.5-->1.5
UTI gram negative bacilli Enterobacter
started rocephin
Tobacco abuse
Rt breast mass
when asked how long pt knew about this, she said 'for a while'
will request breast surgery eval, will order US
CODE STATUS: Full code
DVT prophylaxis: Heparin
Diet: cardiac diet
d/w with multiple family members at bedside on 02/27
d/w with cards
Transfer out of IMU
complex visit
Anticipated Discharge: > 48 hours
Subjective/Interval History
-
Date of Service: March 01, 2024
No chest pain or sob
Objective Data
-
Vital Signs:
Vital Signs
Temp Pulse Resp BP Pulse Ox
98.0 F 62 16 139/70 98
03/01/24 15:01 03/01/24 16:00 03/01/24 15:01 03/01/24 15:03 03/01/24 15:01
I&O
02/29/24 03/01/24 03/02/24
06:59 06:59 06:59
Intake Total 875 / 875 360 / 360 420 / 420
Output Total 1475 / 1475 150 / 150 400 / 400
Balance -600 / -600 210 / 210
Review of Systems
-
History Source: Patient and Coordinated Provider
Constitutional: Denies Fever
EENT: Reports No Symptoms Reported
Respiratory: Reports No Symptoms; Denies Trouble Breathing
Cardiac: Reports No Symptoms; Denies Chest Pain
Abdomen/GI: Reports No Symptoms
Breast: Reports Mass/Lump (rt lateral breast)
Physical Exam
-
General: Well Developed and Appears Chronically Ill; Negative Well Nourished (thin)
HEENT: Normocephalic and Atraumatic
Respiratory: Clear to Auscultation
Cardiac: Regular Rhythm and S1/S2
Breast: Mass/Lump (Pt rt breast eval with Geovanna AGRAWAL in room)
GI: Soft and Nontender
Musculoskeletal: No Clubbing, No Cyanosis and No Edema
Neuro: Awake, Alert and Oriented
--- NOTE | 2024-03-01 21:06 | CON.GS ---
Consultation
-
Date/Time Consultation Requested: 03/01/24 1847H
Date/Time Consultation Performed: 03/01/247H
Requesting Provider: Leslie
Performing Provider: Joey
Reason for Consultation: Breast mass
Medical History
-
Chief Complaint: Right breast mass
History of Present Illness:
63 Y/O female admitted for hypertensive crisis found to have suspicious right breast mass by nursing staff. [place] visiting from [place], originally from this area visiting family with intention to relocate back to [facility]. Nursing detected large right breast
mass and spoke with Dr. Leslie baxter about right breast mass. Pt reported to Dr. Nelson that she had the mass ' for a while'. The patient has not interacted with any medical provider since before the pandemic.
Past Medical History
Past Medical History: HTN
Past Surgical History: None
Social History
Tobacco: Smoker
Alcohol: Occasional
Allergies / Home Medications
Allergy/AdvReac Type Severity Reaction Status Date / Time
No Known Allergies Allergy Unverified 02/26/24 20:15
�Medication �Instructions �Recorded �Confirmed �Type
No Meds [No Current Medications] 02/26/24 02/26/24 History
Review of Systems
-
All other systems: Negative unless noted
A 10 point review of systems was completed, and was negative except as per HPI.
Physical Exam
Vital Signs
Temp Pulse Resp BP Pulse Ox
98.6 F 72 20 145/58 97
03/01/24 19:21 03/01/24 19:31 03/01/24 19:21 03/01/24 19:31 03/01/24 19:21
02/29/24 03/01/24 03/02/24
06:59 06:59 06:59
Actual Weight 61.1 kg
Body Mass Index (BMI) 23.9
Lab Results
02/27/24 06:44
03/01/24 03:00
WBC 5.5 10^3/uL (4.8-10.8) 02/27/24 06:44
Hgb 9.3 g/dL (12.0-16.0) L 02/27/24 06:44
Hct 29.1 % (37.0-47.0) L 02/27/24 06:44
Plt Count 285 10^3/uL (130-400) 02/27/24 06:44
Abs Immat Gran (auto) 0.0 10^3/uL (0-0.05) 02/26/24 21:00
Neutrophils % 77.3 % (42.2-75.2) H 02/26/24 21:00
Data Reviewed
-
Labs: Labs Reviewed by me
Assessment / Plan
-
Right breast mass concerning for neglected carcinoma. Pt will undergo diagnostic imaging with mammogram and US; possible biopsy this admission.
--- NOTE | 2024-03-01 22:33 | PTCARENOTE ---
Denies any complaints of pain or discomfort. Needs assistance to lift her legs in amd out of bed. Voiding clear yellow urine. Right radial cath site wnl.
[2024-03-01 23:17] LABS: Albumin 2.84 g/dL (3.75-5.01); Alpha 1 Globulin 0.51 g/dL (0.19-0.46); Free Kappa Light Chains,Quant 79.77 mg/L (3.30-19.40); Free Lambda Light Chains,Quant 47.36 mg/L (5.71-26.30); IgA 465 mg/dL (68-408); IgG 1097 mg/dL (768-1632); IgM 82 mg/dL (35-263); Immunofixation Electrophoresis IFE Done; Kappa/Lambda Fr Light Ratio 1.68 (0.26-1.65); Total Protein-Electrophoresis 6.2 g/dL (6.3-8.2)
[2024-03-02] VITALS (7 sets, daily range): BP systolic 150–168; BP diastolic 77–88; BMI 24.5
[2024-03-02 03:41] LABS: Hematocrit 25.6 % (37.0-47.0); Hemoglobin 8.1 g/dL (12.0-16.0); Mean Corp Hgb Conc. 31.6 g/dL (33.0-37.0); Mean Corpuscular Hgb 24.3 pg (27.0-31.0); Mean Corpuscular Volume 76.9 fL (81.0-99.0); Mean Platelet Volume 9.2 fL (7.4-10.4); Platelet Count 281 10^3/uL (130-400); Red Blood Cell Count 3.33 10^6/uL (4.20-5.40); Red Cell Dist. Width 20.1 % (11.5-14.5); White Blood Cell Count 5.3 10^3/uL (4.8-10.8)
[2024-03-02 04:04] LABS: Blood Urea Nitrogen 30 mg/dl (7-17); Calcium 7.9 mg/dl (8.4-10.2); Carbon Dioxide 31 mmol/L (22-30); Chloride 102 mmol/L (98-107); Estimated Creatinine Clearance 36 ml/min; Glucose 80 mg/dl (70-99); Sodium 136 mmol/L (135-145); eGFR 45.92
[2024-03-02] MEDS: NORVASC 5 MG PO (08:11)
[2024-03-02] MEDS: COREG 12.5 MG PO ×2 (08:11→10:15)
[2024-03-02] MEDS: HEPARIN SC (08:12)
[2024-03-02] MEDS: LOW STRENGTH ASPIRIN 81 MG PO (08:12)
--- NOTE | 2024-03-02 08:20 | PTCARENOTE ---
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 with no complaints. monitor NSR, BP 159/80. breast imaging called to floor with hold sq heparin as per doctor, Dr. Lopez making rounds and is aware. INT in left arm
patent. +1 bilat LE edema, pulses by Doppler. right radial dsg. D/I, distal pulse palpable.
--- NOTE | 2024-03-02 11:01 | W.PN.CARDCBS ---
Addendum entered and electronically signed by Zheng Lopez MD 03/02/24 14:14:
I saw and examined the patient.
The SONOGRAPHY TECHNOLOGIST or PA's note was reviewed and I agree with the note.
Comment: General: Well developed, well nourished in NAD.
Neck: Supple, no JVD, HJR, carotids +2 B/L, no bruits bilaterally.
Heart: Non displaced PMI, RRR, no murmurs, No S3, S4, no rubs.
Lungs: Clear to auscultation bilaterally, no wheeze, rhonchi, rubs bilaterally,
normal expiratory phase.
Extremities: No clubbing, cyanosis or edema bilaterally.
Neuro: Grossly nonfocal, awake, alert and oriented x3.
Stable cardiology status. She remains hypertensive. Reviewed normal coronary arteries noted at time of catheterization on 03/01. Etiology of cardiomyopathy may be due to poor hypertension control. Consider starting EDSON inhibitor if renal function
remains stable. Workup for mass in breast in progress.
Original Note:
Today's Communication / Plan
-
Workup of right breast mass ongoing
Follow volume status. P.o. Lasix 20 mg daily
Tubigrip stockings
Guideline directed medical therapy of nonischemic cardiomyopathy as able
Impression / Plan
-
PCP: None local, Lives in [place]
Analysis Lead: saw a railroad operator in [place] for HTN
Impression:
Presented with abdominal bloating, edema, and SOB
Acute HFrEF
Hypertensive emergency
NICM, new diagnosis
NSVT
CAMI
Elevated troponin, nonobstructive CAD by cath
Anemia
Hypertension
Tobacco abuse
R breast mass
Echo 02/27/2024: EF 35-40%, global hypokinesis, mild cLVH, stage III diastolic dysfunction, GLS demonstrates 'Bullseye' appearance, consistent with possible amyloidosis. GLS -5.8%, moderate MR, aortic sclerosis without stenosis, trace AI, mild to mod
TR, estimated PAP 59 mmHg
Plan:
-unclear dry weight, however does appear patient diuresed from admission. patient states she still feels as though she has lower extremity edema. LVEDP by cath 03/01 was 17. transitioned to po lasix 20mg daily 03/02. Cr stable at 1.3. tubigrip
stockings ordered
-fortunately cath 03/01 with nonobstructive CAD
-BP improving however remains elevated. continues with some brief runs of NSVT up to 10 beats. coreg increased to 25mg BID, also on norvasc. keep K>4 and mag>2
-consider edson/arb/arni/aldactone/SGLT2. CM to assess cost of entresto and jardiance to patient
-amyloid workup in progress
-she was found to have significant R breast mass with concern for malignancy. for mammogram and biopsy per primary service/oncology.
-d/w nursing
HPI 02/27/2024:
Patient is a 63 YOM w/ PMH of hypertension, tobacco abuse who has not been seen by medical anthropologist since start of COVID, lives in [place] and is visiting family on the [facility] who [facility]25 with abdominal bloating, lower
extremity edema, shortness of breath and orthopnea ongoing for a week. On arrival to ED she was noted to be very hypertension 222/131. CXR was showed moderate cardiomegaly with vascular congestion, small bilateral pleural effusions, mild bronchial
wall thicken and mild interstitial/airspace opacity. ProBNP >51017. Troponin 0.053, 0.054. ECG shows normal sinus rhythm with ST-T wave abnormality in lateral leads. She was given IV Lasix 80 mg and amlodipine 10 mg in ED. Started on NTG drip for
HTN. Of note patient had previously was taking Metoprolol, Amlodipine and HCTZ prior to COVID but has not taken in years.
LE venous Doppler negative for DVTs.
Progress Note - Analysis Lead
Subjective
Date of Service: March 02, 2024
Denies chest pain, shortness of breath, palpitations
Objective
Labs:
03/02/24 03:31
03/02/24 03:31
Labs
Hgb 8.1 g/dL (12.0-16.0) L 03/02/24 03:31
Hct 25.6 % (37.0-47.0) L 03/02/24 03:31
Plt Count 281 10^3/uL (130-400) 03/02/24 03:31
Sodium 136 mmol/L (135-145) 03/02/24 03:31
Potassium 4.0 mmol/L (3.5-5.1) 03/02/24 03:31
BUN 30 mg/dl (7-17) H 03/02/24 03:31
Creatinine 1.3 mg/dL (0.6-1.0) H 03/02/24 03:31
Glucose 80 mg/dl (70-99) 03/02/24 03:31
Vital Signs and I&O:
Vital Signs
Temp Pulse Resp BP Pulse Ox
98.6 F 64 16 159/80 99
03/02/24 07:29 03/02/24 10:15 03/02/24 07:29 03/02/24 10:15 03/02/24 08:30
Vital Signs
Temp Pulse Resp BP Pulse Ox
98.6 F 64 16 159/80 99
03/02/24 07:29 03/02/24 10:15 03/02/24 07:29 03/02/24 10:15 03/02/24 08:30
Intake & Output
02/29/24 03/01/24 03/02/24 03/03/24
07:59 07:59 07:59 07:59
Intake Total 875 / 875 360 / 360 420 / 420
Output Total 1475 / 1475 150 / 150 650 / 650
Balance -600 / -600 210 / 210 -230 / -230
Physical Exam
Physical Exam
GEN: No distress, awake, alert, oriented x3. Appears cachectic and older than stated age
HEENT: supple, anicteric, mmm, EOMI
LUNGS: Fine crackles at bases, no wheezes
CV: Reg, S1/S2, no murmur
ABD: soft, BS+, NT/ND
EXT: No cyanosis, clubbing.1+ edema of bilateral lower extremity
NEURO: Gross non-focal
SKIN: Warm, pink, dry. No rash. Firm right breast mass
--- NOTE | 2024-03-02 11:24 | W.PN.UPDATE ---
Update Note
Progress Note Update
Dr. Carlisle covering for me examined the patient. Breast exam shows large 11 x 8 cm firm breast mass. Appears to move on chest wall. There are skin changes with dimpling and chronnic ulcerative changes, no evidence of infection or bleeding. Palpable
axillary lymph node. Imaging is complete and waiting final report.
--- NOTE | 2024-03-02 11:58 | PTCARENOTE ---
patient returned from right breast biopsy, ice pack applied . Tubigrip bilat. placed on LE as ordered.
--- NOTE | 2024-03-02 12:00 | OID.BR.INTR ---
[facility] Breast Navigator - Initial
- -
Date of Contact: 03/02/24
Met with patient. Patient given written information on navigator services available at [facility]. Will follow up as needed per protocol.
[2024-03-02] MEDS: LASIX 20 MG PO (12:01)
[2024-03-02] MEDS: STERILE WATER FOR INJECTION 10 ML IV (12:04)
[2024-03-02] MEDS: ROCEPHIN 1000 MG IV (12:05)
--- NOTE | 2024-03-02 14:23 | W.PN.HOSP.TC ---
Today's Communication/Plan
-
follow BP on current regiment
Assessment / Plan
Assessment / Plan
Ms. Geovanna Gaspar is a 63 yo woman with hx HTN who presents to the ER with lower extremity and abdominal swelling.
IMPRESSION:
Acute HFrEF exacerbation
Echo: Normal left ventricular chamber size. Mild to moderately reduced left
ventricular systolic function. Left ventricular ejection fraction is 35-40%by
Day's method. Global hypokinesis. Mild concentric left ventricular
hypertrophy. Stage III diastolic dysfunction suggestive of restrictive filling
pattern and increased filling pressures. GLS demonstrates 'Bullseye' appearance
consistent with possible amyloidosis. GLS -5.8%.
Mitral sclerosis without stenosis. Moderate mitral regurgitation.
Indexed LA volume is moderately abnormal (42-48 mL/m2).
Trileaflet aortic valve. Aortic sclerosis without stenosis. Trace aortic
insufficiency.
Structurally normal tricuspid valve. Tricuspid valve opens normally. Mild to
moderate tricuspid regurgitation. Estimated pulmonary artery pressure of 59
mmHg. Assuming a right atrial pressure of 13 mmHg.
Patient presented with lower extremity swelling.
BNP level is elevated at >01461
Troponin level is 0.050
Lasix 40 mg twice daily has been held in the setting of mild bump in creatinine and cardiac catheterization
Daily weight.
Strict I's and O's.
Consulted cardiology.
Added carvedilol, dose just increased to 25 mg bid. Continue asa. BP 02/28 150/79
Cath: 1. Nonobstructive coronary disease
RECOMMENDATIONS
1. Medical management for LV dysfunction
2. Needs aggressive blood pressure control.
Prelim work up initiated as concern for amyloid-UPEP/SPEP pending.
Hypertensive Emergency
Amlodipine discontinued
Added carvedilol
Continue extended release nifedipine. May need to adjust further dosing for systolic BP elevated.
Elevated troponin likely type II [place].
Seen by cardiology evaluate
CAMI versus CKD
-Slightly improved
-monitor closely with diuresis.
1.6-->1.4-->1.5-->1.5-->1.3
UTI gram negative bacilli Enterobacter
started rocephin
Tobacco abuse
Rt breast mass
when asked how long pt knew about this, she said 'for a while'
appreciate input from Dr. Cook. Pt underwent bx today of probable breast cancer
CODE STATUS: Full code
DVT prophylaxis: Heparin
Diet: cardiac diet
Underwent bx today. Will monitor BP for next 24 hrs, will need to follow up in Dr. Cook office to review bx and decide on further work up/Tx. Discussed with her brother and son in room, they are are of importance of follow up
Anticipated Discharge: 24 - 48 hours
Subjective/Interval History
-
Date of Service: March 02, 2024
Awake, alert
Objective Data
-
Labs:
Laboratory Results
03/02/24
03:31
WBC 5.3
Hgb 8.1 L
Hct 25.6 L
Plt Count 281
Sodium 136
Potassium 4.0
Chloride 102
Carbon Dioxide 31 H
BUN 30 H
Creatinine 1.3 H
Glucose 80
Calcium 7.9 L
Vital Signs:
Vital Signs
Temp Pulse Resp BP Pulse Ox
97.8 F 64 16 150/79 100
03/02/24 12:23 03/02/24 12:01 03/02/24 12:23 03/02/24 12:01 03/02/24 12:23
I&O
03/01/24 03/02/24 03/03/24
06:59 06:59 06:59
Intake Total 360 / 360 420 / 420
Output Total 150 / 150 650 / 650 175 / 175
Balance 210 / 210 -230 / -230 -175 / -175
Review of Systems
-
History Source: Patient and Family (brother and son in room)
Constitutional: Reports No Symptoms
EENT: Reports No Symptoms Reported
Respiratory: Reports No Symptoms; Denies Trouble Breathing
Cardiac: Reports No Symptoms; Denies Chest Pain
Abdomen/GI: Reports No Symptoms
Breast: Reports Mass/Lump
Physical Exam
-
General: Well Developed, No Apparent Distress and Appears Chronically Ill
HEENT: Normocephalic and Atraumatic
Respiratory: Clear to Auscultation
Cardiac: Regular Rhythm and S1/S2
Breast: Mass/Lump (Pt rt breast eval with Geovanna RN in room)
GI: Soft and Nontender
Musculoskeletal: No Clubbing, No Cyanosis and No Edema
Neuro: Awake, Alert and Oriented
--- NOTE | 2024-03-02 15:40 | CM ---
priced entresto and jardiance with pts perscript plan [facility].
entresto is $660 ( she has a $1500 deductible to pay down ) and the pt is asking for generic option, the cost is too high.
Jardiance is a ZERO dollar copay, pt is agreeable to this.
--- NOTE | 2024-03-02 18:08 | PTCARENOTE ---
ice pack applied to right breast q 3 hours for 1/2 hour for 24 hours. patient has no pain at site.
[2024-03-02] MEDS: HEPARIN 5000 UNITS SC (19:19)
[2024-03-02] MEDS: COREG 25 MG PO (19:19)
--- NOTE | 2024-03-03 01:59 | PTCARENOTE ---
Denied any complaints of pain or discomfort. Sleeping at intervals. SR on the monitor in the 60-70's.
[2024-03-03 05:54] VITALS: BP 169/93
[2024-03-03 05:57] VITALS: BMI 24.6
[2024-03-03 07:00] VITALS: BP 176/88
--- NOTE | 2024-03-03 08:16 | W.PN.CARDCBS ---
Addendum entered and electronically signed by Ange Brandt PA-C 03/05/24 13:52:
patient with troponin elevation, however cath with nonobstructive CAD, therefore elevation felt to be nonischemic myocardial injury
Addendum entered and electronically signed by Zheng Lopez MD 03/03/24 10:43:
I saw and examined the patient.
The RETAIL LOSS PREVENTION SPECIALIST or PA's note was reviewed and I agree with the note.
Comment: General: Well developed, well nourished in NAD.
Neck: Supple, no JVD, HJR, carotids +2 B/L, no bruits bilaterally.
Heart: Non displaced PMI, RRR, no murmurs, No S3, S4, no rubs.
Lungs: Scattered rhonchi at the bases
Extremities: No clubbing, cyanosis or edema bilaterally.
Neuro: Grossly nonfocal, awake, alert and oriented x3.
She continues to be stable from a cardiology viewpoint except for hypertension. Will increase Norvasc to 5 mg p.o. twice daily and add lisinopril 5 mg daily as renal function has stabilized. Might consider adding Jardiance. Await workup and
treatment for breast cancer.
Addendum entered and electronically signed by Ange Brandt PA-C 03/03/24 10:09:
Cr stable at 1.3. will increase norvasc to 5mg BID and add lisinopril 5mg daily. will consider addition of jardiance if Cr stable over next 24-48 hours with addition of edson.
Original Note:
Today's Communication / Plan
-
work up of breast mass per primary service/oncology
add jardiance. pending Cr, consider addition of edson/arb
tubigrip stockings
po lasix 20mg daily
Impression / Plan
-
PCP: None local, Lives in [place]
Electronic Organ Technician: saw a retail performance specialist in [place] for HTN
Impression:
Presented with abdominal bloating, edema, and SOB
Acute HFrEF
Hypertensive emergency
NICM, new diagnosis
NSVT
CAMI
Elevated troponin, nonobstructive CAD by cath
Anemia
Hypertension
Tobacco abuse
R breast mass
Echo 02/27/2024: EF 35-40%, global hypokinesis, mild cLVH, stage III diastolic dysfunction, GLS demonstrates 'Bullseye' appearance, consistent with possible amyloidosis. GLS -5.8%, moderate MR, aortic sclerosis without stenosis, trace AI, mild to mod
TR, estimated PAP 59 mmHg
Plan:
-Status post mammogram with significant concern for malignancy. Status post biopsy 03/02, results pending.
-She remains with lower extremity edema. LVEDP by cath 03/01 was 17. With EF 35-40, started on p.o. Lasix 20 mg daily 03/02. Creatinine pending 03/03. Remaining edema possible third spacing from suspected malignancy. Tubigrip stockings ordered
-Cath this admission with nonobstructive coronary disease
-Blood pressures remain elevated. Remains with several 3-5 beat runs of NSVT overnight. Continue Coreg 25 mg twice daily. Continue Norvasc. If creatinine stable, consider addition of EDSON/ARB. Entresto is felt to be too costly to patient.
Jardiance co-pay is $0 per month, would consider initiation
-amyloid workup in progress
HPI 02/27/2024:
Patient is a 63 YOM w/ PMH of hypertension, tobacco abuse who has not been seen by manager of medical since start of COVID, lives in [place] and is visiting family on the formerly [facility] who presented to [facility] 02/25 with abdominal bloating, lower
extremity edema, shortness of breath and orthopnea ongoing for a week. On arrival to ED she was noted to be very hypertension 222/131. CXR was showed moderate cardiomegaly with vascular congestion, small bilateral pleural effusions, mild bronchial
wall thicken and mild interstitial/airspace opacity. ProBNP >83457. Troponin 0.053, 0.054. ECG shows normal sinus rhythm with ST-T wave abnormality in lateral leads. She was given IV Lasix 80 mg and amlodipine 10 mg in ED. Started on NTG drip for
HTN. Of note patient had previously was taking Metoprolol, Amlodipine and HCTZ prior to COVID but has not taken in years.
LE venous Doppler negative for DVTs.
Progress Note - Electronic Organ Technician
Subjective
Date of Service: March 03, 2024
Denies chest pain, shortness of breath, palpitations, right breast pain
Objective
Labs:
03/02/24 03:31
Labs
Hgb 8.1 g/dL (12.0-16.0) L 03/02/24 03:31
Hct 25.6 % (37.0-47.0) L 03/02/24 03:31
Plt Count 281 10^3/uL (130-400) 03/02/24 03:31
Sodium 136 mmol/L (135-145) 03/02/24 03:31
Potassium 4.0 mmol/L (3.5-5.1) 03/02/24 03:31
BUN 30 mg/dl (7-17) H 03/02/24 03:31
Creatinine 1.3 mg/dL (0.6-1.0) H 03/02/24 03:31
Glucose 80 mg/dl (70-99) 03/02/24 03:31
Vital Signs and I&O:
Vital Signs
Temp Pulse Resp BP Pulse Ox
98.8 F 80 18 169/93 99
03/03/24 06:57 03/03/24 06:00 03/03/24 06:57 03/03/24 05:54 03/03/24 06:57
Vital Signs
Temp Pulse Resp BP Pulse Ox
98.8 F 80 18 169/93 99
03/03/24 06:57 03/03/24 06:00 03/03/24 06:57 03/03/24 05:54 03/03/24 06:57
Intake & Output
0703/02/24 03/03/24 03/04/24
07:59 07:59 07:59 07:59
Intake Total 360 / 360 420 / 420
Output Total 150 / 150 650 / 650 575 / 575
Balance 210 / 210 -230 / -230 -575 / -575
Physical Exam
Physical Exam
GEN: No distress, awake, alert, oriented x3. Appears cachectic and older than stated age
HEENT: supple, anicteric, mmm, EOMI
LUNGS: Fine crackles at bases, no wheezes
CV: Reg, S1/S2, no murmur
ABD: soft, BS+, NT/ND
EXT: No cyanosis, clubbing. 1+ edema of bilateral lower extremity
NEURO: Gross non-focal
SKIN: Warm, pink, dry. No rash. Firm right breast mass
[2024-03-03] MEDS: NORVASC 5 MG PO (08:39)
[2024-03-03] MEDS: HEPARIN 5000 UNITS SC (08:39)
[2024-03-03] MEDS: LOW STRENGTH ASPIRIN 81 MG PO (08:46)
[2024-03-03] MEDS: COREG 25 MG PO (08:46)
[2024-03-03] MEDS: LASIX 20 MG PO (08:47)
[2024-03-03 09:29] LABS: Blood Urea Nitrogen 30 mg/dl (7-17); Calcium 8.1 mg/dl (8.4-10.2); Carbon Dioxide 30 mmol/L (22-30); Chloride 100 mmol/L (98-107); Estimated Creatinine Clearance 36 ml/min; Glucose 118 mg/dl (70-99); Sodium 137 mmol/L (135-145); eGFR 45.92
[2024-03-03 09:44] VITALS: BP 155/70
[2024-03-03] MEDS: ZESTRIL 5 MG PO (10:43)
[2024-03-03 11:17] VITALS: BP 159/79
[2024-03-03] MEDS: ROCEPHIN 1000 MG IV (11:20)
[2024-03-03] MEDS: STERILE WATER FOR INJECTION 10 ML IV (11:20)
[2024-03-03 14:20] LABS: % Basophils 0.4 % (0-2); % Eosinophils 1.7 % (0-6); % Immature Granulocytes 0.2 % (0-0.5); % Lymphocytes 17.9 % (20.5-51.1); % Monocytes 9.7 % (1.7-9.3); % Neutrophils 70.1 % (42.2-75.2); Absolute Eosinophils 0.1 10^3/uL (0-0.7); Absolute Monocytes 0.5 10^3/uL (0.1-0.6); Absolute Neutrophils 3.8 10^3/uL (1.4-6.5); Hematocrit 30.1 % (37.0-47.0); Hemoglobin 9.1 g/dL (12.0-16.0); Mean Corp Hgb Conc. 30.2 g/dL (33.0-37.0); Mean Corpuscular Volume 79.4 fL (81.0-99.0); Mean Platelet Volume 9.7 fL (7.4-10.4); Nucleated Red Blood Cells % 0 %; Platelet Count 345 10^3/uL (130-400); Red Blood Cell Count 3.79 10^6/uL (4.20-5.40); Red Cell Dist. Width 20.4 % (11.5-14.5); White Blood Cell Count 5.4 10^3/uL (4.8-10.8)
[2024-03-03 15:19] VITALS: BP 164/84
--- NOTE | 2024-03-03 16:22 | W.PN.HOSP.TC ---
Today's Communication/Plan
-
dc to stay with brother in area pending evaluation with Dr. Cook
Assessment / Plan
Assessment / Plan
Ms. Geovanna Gaspar is a 63 yo woman with hx HTN who presents to the ER with lower extremity and abdominal swelling.
BP currently in 150/70 range
IMPRESSION:
Acute HFrEF exacerbation
Echo: Normal left ventricular chamber size. Mild to moderately reduced left
ventricular systolic function. Left ventricular ejection fraction is 35-40%by
Day's method. Global hypokinesis. Mild concentric left ventricular
hypertrophy. Stage III diastolic dysfunction suggestive of restrictive filling
pattern and increased filling pressures. GLS demonstrates 'Bullseye' appearance
consistent with possible amyloidosis. GLS -5.8%.
Mitral sclerosis without stenosis. Moderate mitral regurgitation.
Indexed LA volume is moderately abnormal (42-48 mL/m2).
Trileaflet aortic valve. Aortic sclerosis without stenosis. Trace aortic
insufficiency.
Structurally normal tricuspid valve. Tricuspid valve opens normally. Mild to
moderate tricuspid regurgitation. Estimated pulmonary artery pressure of 59
mmHg. Assuming a right atrial pressure of 13 mmHg.
Patient presented with lower extremity swelling.
BNP level [place] elevated at >49015
Troponin level is 0.050
Lasix 40 mg twice daily has been held in the setting of mild bump in creatinine and cardiac catheterization
and Lasix resumed at 20 mg daily
Daily weight.
70.3-->62.9 kg
Strict I's and O's.
Consulted cardiology.
input appreciated
Added carvedilol, dose just increased to 25 mg bid. Continue asa. BP 02/28 150/79
Cath: 1. Nonobstructive coronary disease
RECOMMENDATIONS
1. Medical management for LV dysfunction
2. Needs aggressive blood pressure control.
Prelim work up initiated as concern for amyloid-UPEP/SPEP pending.
Hypertensive Emergency
Amlodipine 5 mg bid
Added carvedilol
low dose Lisinopril
Elevated troponin likely type II [place].
Seen by cardiology evaluate
CAMI versus CKD
-Slightly improved
-monitor closely with diuresis.
1.6-->1.4-->1.5-->1.5-->1.3
UTI gram negative bacilli Enterobacter
started rocephin, received 4 doses. Will stop
Tobacco abuse
Rt breast mass
when asked how long pt knew about this, she said 'for a while'
appreciate input from Dr. Cook. Pt underwent bx of probable breast cancer
will need follow up in office of Dr. Cook
CODE STATUS: Full code
DVT prophylaxis: Heparin
Diet: cardiac diet
complex dc, reviewed with pt and brother, Chaz and son in room
More than 30 minutes spent in discharge including
Final examination of the patient
Summarizing hospital stay
Instructions for continuing care to all relevant caregivers
Preparation of discharge records, prescriptions, and referral forms
Total time spent (in minutes): 45
Anticipated Discharge: Today
Subjective/Interval History
-
Date of Service: March 03, 2024
Denies chest pain or sob
Objective Data
-
Labs:
Laboratory Results
03/03/24 03/03/24
08:35 13:06
WBC 5.4
Hgb 9.1 L
Hct 30.1 L
Plt Count 345 D
Sodium 137
Potassium 4.0
Chloride 100
Carbon Dioxide 30
BUN 30 H
Creatinine 1.3 H
Glucose 118 H
Calcium 8.1 L
Vital Signs:
Vital Signs
Temp Pulse Resp BP Pulse Ox
98.8 F 65 18 159/79 98
03/03/24 15:17 03/03/24 13:00 03/03/24 15:17 03/03/24 11:17 03/03/24 15:17
I&O
03/02/24 03/03/24 03/04/24
06:59 06:59 06:59
Intake Total 420 / 420
Output Total 650 / 650 575 / 575
Balance -230 / -230 -575 / -575
Review of Systems
-
History Source: Patient and Family (brother - Chaz and son in room)
Constitutional: Reports No Symptoms
EENT: Reports No Symptoms Reported
Respiratory: Reports No Symptoms; Denies Trouble Breathing
Cardiac: Reports No Symptoms; Denies Chest Pain
Abdomen/GI: Reports No Symptoms
Breast: Reports Mass/Lump
Physical Exam
-
General: Well Developed, No Apparent Distress and Appears Chronically Ill
HEENT: Normocephalic and Atraumatic
Respiratory: Clear to Auscultation
Cardiac: Regular Rhythm and S1/S2
GI: Soft and Nontender
Musculoskeletal: No Clubbing, No Cyanosis and No Edema
Neuro: Awake, Alert and Oriented
[2024-03-03] MEDS: PREVNAR 20 0.5 ML IM (17:05)
--- NOTE | 2024-03-03 17:51 | PTCARENOTE ---
Pt received this am with no c/o. OOB ad luba in the room, gait steady. Right breast dressing dry and intact. Pt discharged to home with her brother. Discharge instructions given and reviewed with pt and her brother with good understanding.
--- NOTE | 2024-03-03 17:56 | W.DS.TRANS ---
DC Summary - Splicing Supervisor
-
Discharge Instructions:
Sleep Apnea Risk Intermediate
Discharge Diagnosis/Procedures cardiac catheterization, HTN out of control,
Breast Mass
Diet No added salt,Restrict fluids to 64 oz
Activity As tolerated
Driving Restrictions Not until seen by your Dr
Bathing Restrictions None
Blood Work CBC, BMP in 1-2 weeks
Specialty Instructions Weigh Daily
Instructions: *PCP/Other Cook [employer]s Heart Failure Instructions
Stand-Alone Forms: DC Instructions- Cath/EP Lab
Changes to Home Medications: Yes
Discharge Medications:
DC Medications w/original date entered in [employer]
amlodipine 5 mg tablet 5 mg PO BID #60 tabs 03/03/24
aspirin 81 mg chewable tablet 81 mg PO DAILY #30 tabs 03/03/24
carvedilol 25 mg tablet 25 mg PO BID #60 tabs 03/03/24
furosemide 20 mg tablet 20 mg PO DAILY #30 tabs 03/03/24
lisinopril 5 mg tablet 5 mg PO DAILY #30 tabs 03/03/24
Home Medication Changes
all meds are new
Pending Results: Yes
Additional Pending Results:
Breast Bx results
--- NOTE | 2024-03-05 12:10 | PN.CDI ---
CDI
- -
CDI:
Physician Documentation Request
Admit Date: 02/26/24 22:33
Dear Cardiology,
Clinical Indicators:
Patient admitted with hypertensive emergency and acute HFrEF.
03/03 Cardiology PN, 'Elevated troponin, nonobstructive CAD by cath'
03/03 Hospitalist PN, 'Elevated troponin likely type II [place]'
Troponin trend:
Laboratory Tests
02/26/24 02/27/24 02/27/24
21:00 03:15 06:44
Troponin I 0.053 H* 0.053 H* 0.054 H*
02/27/24
11:27
Troponin I 0.050 H*
Due to potentially conflicting documentation, please clarify the etiology of the troponin elevation:
Type II [place]
Non ischemic myocardial injury
Elevated troponin only
Other, please specify
Use of terms such as suspected, likely, concern for, or probable (associated with a specific diagnosis that is being evaluated, monitored, or treated as if it exists) are acceptable and can be coded in the inpatient setting, when documented at the
time of discharge.
Thank you,
Lupe Richards RN
CDI Specialist
Please use your independent medical judgment in providing your response.
== END 2024-03-03 18:00 | disposition home or self-care (01) | DRG 286 ==
LOC: IVU 22:33
PROVIDERS: Clinical Nurse Specialist Family Health; Emergency Medicine; Hospitalist; Nurse Practitioner; Physician Assistant; Physician Assistant Medical; Radiology Diagnostic Radiology; ADMITTING PHYSICIAN Student in an Organized Health Care Education/Training Program; ATTENDING PHYSICIAN Internal Medicine; CONSULT PHYSICIAN Surgery; EMERGENCY PHYSICIAN Student in an Organized Health Care Education/Training Program; OTHER PHYSICIAN Internal Medicine Cardiovascular Disease
PROC: 4A023N7 Measurement of Cardiac Sampling and Pressure, Left Heart, Percutaneous Approach (ICD-10-PCS; 2024-03-01)
PROC: B211YZZ Fluoroscopy of Multiple Coronary Arteries using Other Contrast (ICD-10-PCS; 2024-03-01)
PROC: 0H9T3ZX Drainage of Right Breast, Percutaneous Approach, Diagnostic (ICD-10-PCS; 2024-03-02)
DX: I13.0 Hypertensive heart and chronic kidney disease with heart failure and stage 1 through stage 4 chronic kidney disease, or unspecified chronic kidney disease (principal); I50.43 Acute on chronic combined systolic (congestive) and diastolic (congestive) heart failure; I16.1 Hypertensive emergency; N17.9 Acute kidney failure, unspecified; I47.20 Ventricular tachycardia, unspecified; N39.0 Urinary tract infection, site not specified; F17.210 Nicotine dependence, cigarettes, uncomplicated; I5A Non-ischemic myocardial injury (non-traumatic); N18.32 Chronic kidney disease, stage 3b; D63.1 Anemia in chronic kidney disease; E78.00 Pure hypercholesterolemia, unspecified; I25.10 Atherosclerotic heart disease of native coronary artery without angina pectoris; C50.911 Malignant neoplasm of unspecified site of right female breast; I42.8 Other cardiomyopathies; B96.89 Other specified bacterial agents as the cause of diseases classified elsewhere; Z82.49 Family history of ischemic heart disease and other diseases of the circulatory system
CPT/HCPCS: 88305; 19083; 71046; 76642; 77062; 77066; 80048; 80053; 80061; 81003; 81015; 82248; 82570; 82728; 82784; 83036; 83521; 83540; 83550; 83735; 83880; 84155; 84156; 84165; 84300; 84443; 84484; 85025; 85027; 86334; 86335; 86803; 87077; 87086; 87186; 88341; 88360; 90677; 93005; 93306; 93458; 93970; 99285; C1894; G0009; Q9967

== ENCOUNTER → 2024-03-30 09:42 | Outpatient (REF) | payer OTHER, SELFPAY | LOC: RAD 09:42 | PROVIDERS: ATTENDING PHYSICIAN Surgery | DX: I71.40 Abdominal aortic aneurysm, without rupture, unspecified (principal) | CPT/HCPCS: 71275; 74174; Q9967 ==

== ENCOUNTER → 2024-04-06 12:44 | Outpatient (REF) | payer OTHER, SELFPAY ==
[2024-04-06 13:33] LABS: % Basophils 0.7 % (0-2); % Eosinophils 4.3 % (0-6); % Immature Granulocytes 0.5 % (0-0.5); % Lymphocytes 26.1 % (20.5-51.1); % Monocytes 11.1 % (1.7-9.3); % Neutrophils 57.3 % (42.2-75.2); Absolute Eosinophils 0.2 10^3/uL (0-0.7); Absolute Lymphocytes 1.1 10^3/uL (1.2-3.4); Absolute Monocytes 0.5 10^3/uL (0.1-0.6); Absolute Neutrophils 2.4 10^3/uL (1.4-6.5); Hematocrit 30.4 % (37.0-47.0); Hemoglobin 9.4 g/dL (12.0-16.0); Mean Corp Hgb Conc. 30.9 g/dL (33.0-37.0); Mean Corpuscular Hgb 24.6 pg (27.0-31.0); Mean Corpuscular Volume 79.6 fL (81.0-99.0); Mean Platelet Volume 8.5 fL (7.4-10.4); Nucleated Red Blood Cells % 0 %; Platelet Count 374 10^3/uL (130-400); Red Blood Cell Count 3.82 10^6/uL (4.20-5.40); Red Cell Dist. Width 19.9 % (11.5-14.5); Reticulocyte Count 1.1 % (0.4-2.8); White Blood Cell Count 4.2 10^3/uL (4.8-10.8)
[2024-04-06 14:56] LABS: Blood Urea Nitrogen 32 mg/dl (7-17); Carbon Dioxide 23 mmol/L (22-30); Chloride 105 mmol/L (98-107); Glucose 65 mg/dl (70-99); Iron 47 ug/dl (37-170); Magnesium 2.3 mg/dl (1.6-2.3); NT-proBNP 7740 pg/ml; Potassium 5.3 mmol/L (3.5-5.1); Sodium 140 mmol/L (135-145); eGFR 30.88
[2024-04-06 15:05] LABS: Percent Saturation 13 % (20-50); Total Iron Binding Capacity 351 ug/dl (265-497)
[2024-04-06 15:23] LABS: Ferritin 24.2 ng/ml (11.1-264.0)
[2024-04-08 14:19] LABS: Erythropoietin (EPO) 30 mU/mL (4-27)
== END ==
LOC: REG 12:44
PROVIDERS: ATTENDING PHYSICIAN Internal Medicine Hematology & Oncology; REFERRING PHYSICIAN Internal Medicine Cardiovascular Disease
DX: C50.811 Malignant neoplasm of overlapping sites of right female breast (principal); I42.8 Other cardiomyopathies
CPT/HCPCS: 36415; 80048; 82668; 82728; 83540; 83550; 83735; 83880; 85025; 85045

== ENCOUNTER → 2024-04-08 10:00 | Outpatient (REF) | payer OTHER, SELFPAY ==
[2024-04-08 10:23] VITALS: BP 170/79; BP_SYST 62
[2024-04-08] MEDS: ANCEF 10 IV (11:32)
[2024-04-08 12:15] VITALS: BP 154/75
== END ==
LOC: RADI 10:00
PROVIDERS: ATTENDING PHYSICIAN Internal Medicine Hematology & Oncology
DX: C50.811 Malignant neoplasm of overlapping sites of right female breast (principal)
CPT/HCPCS: 36561; 76937; 77001; 99152; 99153; C1788

== ENCOUNTER → 2024-04-13 16:27 | Outpatient (REF) | payer OTHER, SELFPAY ==
[2024-04-13 15:04] LABS: % Basophils 0.6 % (0-2); % Eosinophils 3.9 % (0-6); % Immature Granulocytes 0.2 % (0-0.5); % Lymphocytes 27.5 % (20.5-51.1); % Monocytes 14.3 % (1.7-9.3); % Neutrophils 53.5 % (42.2-75.2); Absolute Eosinophils 0.2 10^3/uL (0-0.7); Absolute Lymphocytes 1.4 10^3/uL (1.2-3.4); Absolute Monocytes 0.7 10^3/uL (0.1-0.6); Absolute Neutrophils 2.7 10^3/uL (1.4-6.5); Hematocrit 28.8 % (37.0-47.0); Mean Corp Hgb Conc. 31.3 g/dL (33.0-37.0); Mean Corpuscular Hgb 24.9 pg (27.0-31.0); Mean Corpuscular Volume 79.6 fL (81.0-99.0); Mean Platelet Volume 8.4 fL (7.4-10.4); Platelet Count 290 10^3/uL (130-400); Red Blood Cell Count 3.62 10^6/uL (4.20-5.40); Red Cell Dist. Width 19.8 % (11.5-14.5); White Blood Cell Count 5.1 10^3/uL (4.8-10.8)
== END ==
LOC: OIDL 16:27
PROVIDERS: ATTENDING PHYSICIAN Internal Medicine Hematology & Oncology
DX: C50.811 Malignant neoplasm of overlapping sites of right female breast (principal)
CPT/HCPCS: 85025

== ENCOUNTER → 2024-04-15 09:04 | Outpatient (REF) | payer OTHER, SELFPAY | LOC: RCS 09:04 | PROVIDERS: ATTENDING PHYSICIAN Internal Medicine Cardiovascular Disease | DX: I25.10 Atherosclerotic heart disease of native coronary artery without angina pectoris (principal); I50.21 Acute systolic (congestive) heart failure | CPT/HCPCS: 93308; 93321; 93325 ==

== ENCOUNTER → 2024-04-26 15:57 | Outpatient (REF) | payer OTHER, SELFPAY ==
[2024-04-26 14:40] LABS: % Basophils 0.7 % (0-2); % Eosinophils 3.5 % (0-6); % Immature Granulocytes 0.2 % (0-0.5); % Lymphocytes 22.7 % (20.5-51.1); % Monocytes 10.5 % (1.7-9.3); % Neutrophils 62.4 % (42.2-75.2); Absolute Eosinophils 0.2 10^3/uL (0-0.7); Absolute Lymphocytes 1.3 10^3/uL (1.2-3.4); Absolute Monocytes 0.6 10^3/uL (0.1-0.6); Absolute Neutrophils 3.6 10^3/uL (1.4-6.5); Hematocrit 29.3 % (37.0-47.0); Hemoglobin 9.2 g/dL (12.0-16.0); Mean Corp Hgb Conc. 31.4 g/dL (33.0-37.0); Mean Corpuscular Volume 79.6 fL (81.0-99.0); Mean Platelet Volume 9.3 fL (7.4-10.4); Nucleated Red Blood Cells % 0 %; Platelet Count 271 10^3/uL (130-400); Red Blood Cell Count 3.68 10^6/uL (4.20-5.40); Red Cell Dist. Width 19.4 % (11.5-14.5); White Blood Cell Count 5.7 10^3/uL (4.8-10.8)
== END ==
LOC: OIDL 15:57
PROVIDERS: ATTENDING PHYSICIAN Internal Medicine Hematology & Oncology
DX: C50.811 Malignant neoplasm of overlapping sites of right female breast (principal)
CPT/HCPCS: 85025

== ENCOUNTER 2024-05-04 05:54 | Inpatient (IN) | payer OTHER, SELFPAY ==
[2024-04-29 09:00] VITALS: BMI 18.4
[2024-04-29 09:58] LABS: % Basophils 0.5 % (0-2); % Eosinophils 3.2 % (0-6); % Immature Granulocytes 0.5 % (0-0.5); % Lymphocytes 21.1 % (20.5-51.1); % Monocytes 9.9 % (1.7-9.3); % Neutrophils 64.8 % (42.2-75.2); Absolute Eosinophils 0.2 10^3/uL (0-0.7); Absolute Lymphocytes 1.3 10^3/uL (1.2-3.4); Absolute Monocytes 0.6 10^3/uL (0.1-0.6); Absolute Neutrophils 3.9 10^3/uL (1.4-6.5); Hematocrit 29.4 % (37.0-47.0); Hemoglobin 9.3 g/dL (12.0-16.0); Mean Corp Hgb Conc. 31.6 g/dL (33.0-37.0); Mean Corpuscular Hgb 25.3 pg (27.0-31.0); Mean Corpuscular Volume 79.9 fL (81.0-99.0); Nucleated Red Blood Cells % 0 %; Platelet Count 288 10^3/uL (130-400); Red Blood Cell Count 3.68 10^6/uL (4.20-5.40); Red Cell Dist. Width 19.3 % (11.5-14.5)
[2024-04-29 10:05] LABS: INR 1.07; PT 13.9 Sec (11.4-14.6)
[2024-04-29 10:06] LABS: APTT 33.2 Sec (23.4-35.0)
[2024-04-29 11:04] LABS: Blood Urea Nitrogen 37 mg/dl (7-17); Carbon Dioxide 23 mmol/L (22-30); Chloride 104 mmol/L (98-107); Estimated Creatinine Clearance 23 ml/min; Glucose 92 mg/dl (70-99); Potassium 4.3 mmol/L (3.5-5.1); Sodium 140 mmol/L (135-145); eGFR 30.88
[2024-05-04] VITALS (18 sets, daily range): BP systolic 149–202; BP diastolic 50–87
[2024-05-04] MEDS: PERIDEX 0.12% ORAL RINSE 15 ML PO (06:55)
[2024-05-04] MEDS: BACTROBAN NASAL 1 GRAM NASAL (06:55)
[2024-05-04] MEDS: NSS 500 IV (06:56)
--- NOTE | 2024-05-04 07:57 | W.IMMPOSTOP ---
Surgical Immed Post Op Note
-
Primary Surgeon: Greg Olivera III, MD
Assisting Surgeon: Sunil Corrigan MD
Pre-op Diagnosis: Juxta-renal Abdominal Aortic Aneurysm
Post-op Diagnosis: As above
Procedure Performed: Back-table physician-modified endovascular aortic repair
Anesthesia Type: General
Specimen / Cultures: NA
Estimated Blood Loss: 130cc
Complications: None
Operative Findings:
A physician-modified endovascular aortic repair was performed by creating SMA, L, and R renal artery fenestrations based on measurements taken from pre-operative imaging. The main body device was deployed successfully, along with a cuff and
bilateral lower iliac limbs. Wires were advanced through the fenestrations and advanced into the target ostium. Stents were successfully placed and deployed through the SMA, L, and R Renal. Patient continued to make urine throughout the case and
doppler signals were present postoperatively.
--- NOTE | 2024-05-04 08:23 | W.SUR.PREOP ---
Pre-Operative Surgical Note
-
I have examined this patient prior to the performance of the scheduled procedure.
The patient's condition is unchanged from the time of the current History and
Physical and the patient is able to undergo the scheduled procedure.
[2024-05-04 08:59] LABS: ACT-LR - POC 266 Seconds (116-155)
[2024-05-04 09:48] LABS: ACT-LR - POC 210 Seconds (116-155)
[2024-05-04 10:57] LABS: ACT-LR - POC 215 Seconds (116-155)
[2024-05-04 11:05] LABS: ACT-LR - POC 298 Seconds (116-155)
--- NOTE | 2024-05-04 11:47 | CON.INTV ---
Consultation
Consultation Request
Date/Time Consultation Requested: 05/04/2024 - 110
Date/Time Consultation Performed: 05/04/2024 - 1131
Requesting Provider: JERED English
Performing Provider: Calvin Zuñiga MD
Reason for Consultation: s/p EVAR
Medical History
-
Chief Complaint: Elective EVAR
History of Present Illness:
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
repair. Patient known to vascular surgery service with last office visit with Dr. Olivera on 04/15/2024. Patient has a large juxtarenal AAA with significant disease/atheroma throughout the visceral segment. She has bilateral renal artery stenosis and
a high-grade, nearly occlusive proximal stenotic lesion involving her celiac artery. Endovascular intervention was discussed including its risks and benefits. Today she underwent EVAR with no immediate complications and was transferred to the ICU
postoperatively. Marketing Operations Assistant services now consulted for additional management/recommendations.
When I saw the patient, she was resting in bed in no acute distress on 2 L/min nasal cannula saturating 100%. Heart rate 74, BP 155/65 via NIBP, and BP 154/52 via right radial A-line. She has some mild nausea and tailbone pain but was given Zofran
recently, and has morphine available if needed which she currently is not requesting. She otherwise denies chest pain, SAN, SOB, abdominal pain, back pain, groin pain, fevers or chills.
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
PSHx: Eye surgery, cardiac cath, right breast biopsy (February 2024), left chest wall port insertion
Past Medical History
Past Medical History: Other (Above as per HPI)
Past Surgical History: Other (Above as per HPI)
Social History
Tobacco: Smoker (0.25 PPD and has smoked 0.5 PPD or less x 40 years)
Alcohol: Occasional (Social use)
Drug: None
Personal:
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
Family History
Family History: Cancer (Breast cancer: Paternal + maternal grandmother; father: Bladder cancer), Diabetes (Mother) and Hypertension (Mother)
Allergies / Home Medications
Allergies
Allergy/AdvReac Type Severity Reaction Status Date / Time
pollen extracts Allergy seasonal Verified 04/28/24 10:09
allergies
Home Medications
�Medication �Instructions �Recorded �Confirmed �Last Taken �Type
aspirin 81 mg chewable tablet 81 mg PO DAILY #30 tabs 03/03/24 05/04/24 05/04/24 05:00 Rx
carvedilol 25 mg tablet 25 mg PO BID #60 tabs 03/03/24 05/04/24 05/04/24 05:00 Rx
furosemide 20 mg tablet 20 mg PO DAILY #30 tabs 03/03/24 05/04/24 05/02/24 08:00 Rx
lisinopril 5 mg tablet 5 mg PO DAILY #30 tabs 03/03/24 05/04/24 05/02/24 08:00 Rx
amlodipine 5 mg tablet 5 mg PO BID 04/06/24 05/04/24 05/04/24 05:00 History
hydralazine 25 mg tablet 25 mg PO BID 04/08/24 05/04/24 05/04/24 05:00 History
dapagliflozin propanediol 10 mg 10 mg PO DAILY 05/04/24 05/04/24 Unknown History
tablet (Farxiga)
spironolactone 25 mg tablet 12.5 mg PO DAILY 05/04/24 05/04/24 Unknown History
Review of Systems
-
History Source: Patient
All other systems: Negative unless noted
Vitals / Labs / Diagnostic Testing
Vital Signs
Temp Pulse Resp BP Pulse Ox
98.5 F 70 18 202/87 95
05/04/24 06:16 05/04/24 07:30 05/04/24 07:30 05/04/24 07:11 05/04/24 06:16
Diagnostic Testing:
Physical Exam
-
HEENT: Normocephalic and Anicteric
Cardiovascular: S1/S2 and Peripheral Edema (negative)
Respiratory: Wheeze (negative), Rales (negative), Rhonchi (negative) and Non-Labored Respirations
GI: Soft, Non Distended, Non Tender and Normal Bowel Sounds
Neurology: AO x 3 and Tremors (negative)
Skin: Warm, Dry and Other (Left anterior chest wall Port-A-Cath)
General: Respiratory Distress (negative), Comfortable, Chills (negative) and Sweats (negative)
Assessment
-
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
endovascular aneurysm repair. Patient known to vascular surgery service with last office visit with Dr. Olivera on 04/15/2024. Patient has a large juxtarenal AAA with significant disease/atheroma throughout the visceral segment. She has bilateral
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 Endovascular intervention was discussed including its risks and benefits. On 05/04/2024, she underwent EVAR with no immediate
complications and was transferred to the ICU postoperatively. Marketing Operations Assistant services now consulted for additional management/recommendations.
Chronic conditions DIRECTOR DIGITAL CATALOGUE: Juxtarenal abdominal aortic aneurysm without rupture, hypertension, right breast invasive ductal carcinoma (2023), CKD III, HFmrEF with diastolic dysfunction grade II, mild-moderate MR, moderate pulmonary hypertension
Impression:
#Juxtarenal AAA without rupture s/p EVAR (POD #0)
#Active tobacco use disorder (currently smoking 0.25PPD with [id number] Hx)
#History of right-sided ER(+), IL (-), HER2 (-) breast cancer (invasive ductal carcinoma diagnosed in February 2024)
#CKD III
#HFmrEF
#Valvular heart disease with mild�moderate MR
#Moderate pulmonary hypertension
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
Plan:
Postoperative surgical intensive care unit monitoring
Supplemental oxygen as needed to maintain SpO2 >90-94%
prn nebulized bronchodilators
Incentive spirometry encouraged 10x per hour for at least 4 hrs a day
Aspiration precautions
Pain control
Neuro and vascular checks per protocol
Maintain MAP>65
Replete electrolytes with K>4, Mg>2
Maintain euglycemia with goal BG 140-180
Vascular surgery following-correspondence and operative notes reviewed
Transfuse blood products as needed to keep Hb>7g/dL, and plt>50k (given post-operative status)
Nicotine patch
DVT prophylaxis
Early nutrition
Early mobilization
Given her tobacco smoking history with >[id number] history with the age between 50�80, she does qualify for annual LDCT chest for lung cancer screening. Because of her right-sided breast cancer, she follows with oncology. Will coordinate between
us and oncology regarding future imaging studies of her chest and if patient wishes to follow-up with us in the office then that is certainly an option.
Critical care statement: A total of 44 minutes of critical care time was provided for this patient today. This includes management of unstable vital signs, evaluation of the patient at bedside, reviewing the patient's pertinent medical records
including radiographs, microbiology, laboratory evaluations, and discussion with primary team, consultants, pharmacy, nutrition, physical therapy, case management, charge nurse, critical care nursing, and respiratory therapy.
[2024-05-04 12:12] LABS: ACT-LR - POC 242 Seconds (116-155)
[2024-05-04 12:51] LABS: ACT-LR - POC 263 Seconds (116-155)
[2024-05-04 12:59] LABS: B.E. - POC -2.4 mmol/L; Glucose - POC 127 mg/dl (70-99); HCO3 - POC 23 mmol/L (21-29); Hematocrit - POC 29 % PCV (37-47); Hemodilution- POC Yes; Hemoglobin Calculated - POC 9.8; Ionized Calcium - POC 1.08 mmol/L (1.12-1.27); O2 Saturation %Calculated-POC 99.9 5 (92-96); PCO2 - POC 41 mmHg (35-45); PO2 - POC 272 mmHg (80-100); Potassium - POC 5.6 mmol/L (3.6-5.0); Sodium - POC 137 mmol/L (135-145); pH - POC 7.36 (7.35-7.45)
[2024-05-04 13:55] LABS: ACT-LR - POC 256 Seconds (116-155)
[2024-05-04 14:43] LABS: ACT-LR - POC 274 Seconds (116-155)
[2024-05-04 15:34] LABS: Hemoglobin 7.7 g/dL (12.0-16.0); Mean Corp Hgb Conc. 32.1 g/dL (33.0-37.0); Mean Corpuscular Hgb 25.2 pg (27.0-31.0); Mean Corpuscular Volume 78.4 fL (81.0-99.0); Mean Platelet Volume 8.7 fL (7.4-10.4); Platelet Count 204 10^3/uL (130-400); Red Blood Cell Count 3.06 10^6/uL (4.20-5.40); Red Cell Dist. Width 19.5 % (11.5-14.5); White Blood Cell Count 8.2 10^3/uL (4.8-10.8)
[2024-05-04 15:36] LABS: INR 1.31; PT 16.1 Sec (11.4-14.6)
[2024-05-04 15:37] LABS: APTT 34.8 Sec (23.4-35.0)
[2024-05-04 15:41] LABS: Blood Urea Nitrogen 31 mg/dl (7-17); Calcium 7.6 mg/dl (8.4-10.2); Carbon Dioxide 19 mmol/L (22-30); Chloride 107 mmol/L (98-107); Estimated Creatinine Clearance 25 ml/min; Glucose 142 mg/dl (70-99); Potassium 5.8 mmol/L (3.5-5.1); Sodium 137 mmol/L (135-145); eGFR 33.07
[2024-05-04] MEDS: CARDENE 200 IV ×3 (15:52→22:52)
[2024-05-04] MEDS: PLAVIX 300 MG PO (16:45)
[2024-05-04 16:55] LABS: Glucose - Point of Care 158 mg/dl (70-99)
[2024-05-04] MEDS: NOVOLIN R 0.05 UNITS IV (17:13)
--- NOTE | 2024-05-04 17:26 | OR.RPT ---
Operative Report
Operative Report
Date of Operation: 05/04/2024
Pre Op Diagnosis:
1.) Pararenal abdominal aortic aneurysm
2.) Advanced breast cancer
3.) Bilateral renal artery stenosis
Post Op Diagnosis:
1.) Pararenal abdominal aortic aneurysm
2.) Advanced breast cancer
3.) Bilateral renal artery stenosis
Procedure:
1.) Percutaneous back-table physician modified fenestrated aortic stent graft repair of pararenal abdominal aortic aneurysm:
Physician modified Cook Alpha 30-155
Large fenestration for SMA
Bilateral renal artery fenestrations
Endologix AFX2 for distal repair
28-80/16-40 (AFX)
34-34/80 (infrarenal AFX cuff)
2.) Bilateral renal artery stenting for fenestrated stent graft repair (6 mm x 22 mm iCasts right renal artery, 5 mm x 22 mm iCast left renal artery, post-dilated proximal right renal artery stent to 10 mm; proximal left renal artery stent
post-dilated to 8 mm)
3.) Balloon angioplasty and stenting of superior mesenteric artery (7 mm x 22 mm iCAST; post-dilated promixal to 10 mm)
4.) Introduce wire/catheter to aorta from bilateral femoral artery access
5.) Ultrasound-guided percutaneous femoral access, bilateral
6.) Proglide closure of bilateral femoral artery access
Surgeon: Greg Olivera III, MD
Quality Management Nurse: Sunil Corrigan MD PGY-2
Anesthesia: General
Complications: None
Estimated Blood Loss: 150 cc
Fluoroscopy:
171.9 minutes
3400 mGy
428.18 DAP
History and Indications for Procedure: 64-year-old female with newly diagnosed advanced breast cancer. As part of the imaging workup she was diagnosed with a pararenal abdominal aortic aneurysm. She was not a good candidate for open repair. She
was not anatomically suitable for Zfen. I therefore recommended a back table physician modified endograft for endovascular repair of the aneurysm.
Procedure in Detail: Geovanna Gaspar was correctly identified and placed supine on the operating table. After adequate induction of anesthesia the abdomen, pelvis and bilateral groins were positioned, prepped and draped in the usual sterile fashion.
Preoperative antibiotics were administered. A timeout procedure was performed with the nursing and anesthesia staff confirming the patients identity as well as the nature and laterality of the procedure.
Under ultrasound guidance, bilateral femoral artery 5Fr sheath access was obtained using a micropuncture technique. The arteries were patent on ultrasound. Ultrasound images of the femoral arteries were saved to the medical record. A pre-close
technique was performed bilaterally with 2 offset Proglide closure devices. The sutures were secured and tucked under surgical towels for use at the end of the case. Bilateral 8 Fr sheaths were replaced over Bentson wires. The patient was
systemically heparinized.
From the left femoral access a KMP catheter and Bentson wire were advanced to the proximal descending thoracic aorta. The wire was exchanged out through the catheter for a Lunderquist wire. Under direct radiographic guidance from the left femoral
access a 16 Fr Rew dry seal sheath was advanced over the Lunderquist wire into the distal abdominal aorta. From the right femoral access a Bentson wire was advanced into the abdominal aorta. A marker pigtail catheter was then placed for
angiographic purposes. An aortogram was performed and identified the origins of the renal arteries bilaterally. Significant bilateral renal artery stenoses were identified as seen on preop CTA.
One of the time, through a separate accesses in the 16 Fr sheath, Glidewire's were advanced into the abdominal aorta. Using an MHK catheter and a 0.014 hydroST wire under roadmap guidance I selected the left renal artery. This was extremely
difficult to obtain wire purchase due to its tortuosity and short length along with the high grade stenosis. I performed balloon angioplasty on the left renal artery stenosis using a 3 mm x 40 mm angioplasty balloon. With a similar approach I
selected the right renal artery. Selecting the right renal artery was similarly very challenging due to the high-grade proximal stenosis. Eventually I was successful at advancing a wire into the distal right renal artery. I performed balloon
angioplasty on the proximal right renal artery stenosis using a 3 mm x 40 mm angioplasty balloon. The wires were left in position for marking purposes and facilitate proper positioning of the physician modified endograft.
The aortic stent graft was modified on the back table as follows:
The thoracic aortic stent graft (Cook Alpha 30�155) was opened and prepped on the back table. The graft was on sheath. The proximal barbs were individually pulled and twisted off with a needle maintenance truck driver. A piece of the clear plastic from the sterile
insert was cut and used as the template. The plastic was folded lengthwise using the midline of this as 12 o'clock reference. On the plastic template the fenestration justin were measured with a ruler according to the preoperative CT angiogram
measurements and marked with a skin marker on the template. This was done for the superior mesenteric artery and bilateral renal arteries. Small holes were burned through the plastic justin. The plastic insert was then laid over the unsheathed
thoracic stent graft. The graft was marked through the holes on the template. Appropriate fenestrations were then burned onto the graft using a hand-held cautery device. The fenestrations were then carefully increased to the desired size. I
sewed a marking wire circumferentially around each fenestration using a gooseneck snare and a running CV 6 Rew-Narendra suture. Anterior/posterior markers (markers from the pigtail catheter) were sewn onto the graft using CV 6 Rew-Narendra suture.
Following this, diameter reducing stitches were placed at the proximal end of the graft and distal end of the graft using a circumferential 3-0 chromic suture. Constraining stitches were placed posteriorly at several levels with 3-0 chromic suture.
The graft was then wiped down with Viper slide solution. The graft was resheath carefully using segmental umbilical tape and digital compression. The graft was then brought to the OR table and oriented outside of the body.
The physician modified endograft was then loaded onto the Lunderquist wire in the right groin. The stent graft was carefully advanced under roadmap guidance to the approximate location using the existing renal marking wires. Once in the desired
position the stent graft was unsheathed.
Through a separate puncture access in the 16 Fr sheath a Glidewire was used to access the main body of the physician modified endograft. Using a TourGuide steerable sheath, AMANDA catheter and a hydroST 0.014 wire, the left renal artery was accessed.
This was extremely difficult to cross the existing proximal stenosis and obtain distal wire purchase. Eventually I was able to do this. The AMANDA catheter was advanced distally. I exchanged out for a Glidewire to obtain more wire purchase distally.
The glide wire was exchanged out for a Moya wire. The initial marking wire was then carefully removed. We performed an arteriogram to confirm proper positioning in the renal artery. A 6 Fr Guy sheath was then advanced through the left renal
fenestration and into the [place] renal artery after removing the TourGuide sheath carefully. A 5 mm x 22 mm iCast stent was then advanced over the wire and placed across the fenestration still inside the sheath.
Through another separate access in the 16 Fr sheath I once again accessed the main body stent graft. I used a number of techniques to access the right renal artery including TourGuide steerable sheath and an array of wires and catheters. I could
not obtain wire access to the right renal artery using any of these approaches. I was able to advance the steerable TourGuide sheath and several catheters through the fenestration but could not successfully select the renal artery. At this point I
abandoned additional attempts to access the right renal artery and focused on the superior mesenteric artery. Using a Glidewire and AMANDA catheter I was able to select the superior mesenteric artery. I advanced the wire into the distal SMA. I
exchanged the wire out for a Moya wire through a Quickcross catheter. A 7 Nigerien curved Guy sheath was carefully brought through the SMA fenestration. A 7 mm x 22 mm I cast stent was then advanced over the wire and placed across the
fenestration still inside the sheath.
Following successful cannulation of the left renal artery fenestration and the SMA fenestration I then completed the deployment of the endograft with release of the uncovered stent at the top. A Coda balloon was then inserted and the proximal seal
zones of the main body were profiled with the Guy sheaths in position. Aggressive ballooning was performed within the endograft to break the 3-0 chromic sutures used as a diameter constraining mechanism. The Coda was then removed over the wire.
Deployment of the iCast stents across the renal fenestration and superior mesenteric artery were completed one at a time as follows: The left renal fenestration marker and the SMA fenestration marker were 'closed' by adjusting the C-arm obliquity.
One at a time the Guy sheaths were then retracted to fully expose the iCast stent. The stent was properly positioned across the fenestration under magnification views and deployed by inflating the balloon to nominal pressure. The Guy sheath was
re-advanced into the iCast to 'swallow' the balloon as it was deflated. A 10 mm x 20 mm angioplasty balloon was then positioned in the proximal portion of the SMA iCast. The sheath was retracted and the balloon inflated while maintaining gentle
forward pressure to post-dilate the proximal end of the iCast. The sheath was once again re-advanced into the stent by swallowing the balloon as it deflated. An 8 mm x 20 mm angioplasty balloon was positioned in the proximal portion of the left
renal artery iCAST. The proximal end of the left renal artery iCAST was postdilated with this balloon. Once the I cast stents had been deployed the Guy sheaths and wires were each removed.
Due to the patient's narrow distal aorta concern over limb competition we elected to complete the distal repair using a unit body device. On the right over the Lunderquist wire the 17 Nigerien AFX introducer sheath was placed. The radiopaque tip of
the sheath was advanced to the distal abdominal aorta. The left femoral 16 Nigerien dry seal sheath was retracted towards the aortic bifurcation. On the left a snare catheter was inserted over the Lunderquist wire and positioned at the aortic
bifurcation. A trilobe snare was inserted through the snare catheter.
The contralateral limb wire of the AFX2 main body was introduced through the introducer sheath and advanced to the aortic bifurcation. The 28-80/16-40 AFX2 bifurcated main body was then loaded onto the Lunderquist wire and advanced through the
introducer sheath. The wire was snared from the contralateral side and pulled out the left femoral access and the AFX2 main body was advanced until the limbs were above the aortic bifurcation. The entire system was then pulled down onto the aortic
bifurcation. The main body was then deployed by pulling the control cord.
The contralateral limb was then deployed by pulling the yellow limb cover. Once this was completed I advanced a pigtail catheter over the contralateral limb wire until the tip was in contact with the wire lock. The contralateral limb was then pulled
as I advanced the pigtail up to release it from the wire lock. The wire was removed and the formed pigtail catheter was then advanced proximally.
The ipsilateral limb was deployed by pinning the inner core and retracting the AFX introducer sheath.
The delivery system was removed. The dilator for the 17 Nigerien sheath was readvanced. The sheath and dilator were then readvanced through the right iliac limb and main body up to the left renal artery stent. Through the introducer sheath I
advanced a 34�34/80 infrarenal endograft extension. The stent was positioned appropriately below the left renal artery and deployed under roadmap guidance in the desired location.
A Coda balloon was then advanced one side at a time. The overlap between the AFX and the distal physician modified stent graft main body was profiled with the Coda. Both iliac limbs were also profiled including the overlap and the distal seal zones
bilaterally.
A pigtail catheter was placed once again. Stiff wires were removed. A completion aortogram demonstrated an good technical result. There was brisk flow through the aortic stent and iliac limbs. The superior mesenteric artery and stent filled briskly
and was widely patent. The [place] right renal artery filled. The left renal artery stent filled but there was no significant flow to the kidney.
I was then able to reselect the left renal artery stent using the TourGuide steerable sheath and a Glidewire. I advanced the AMANDA catheter to the end of the left renal artery stent and performed an arteriogram of the left renal artery. This showed
an extensive dissection of the left renal artery with no meaningful flow to the kidney. I was not successful at obtaining wire purchase to attempt any intervention. On close examination of the arteriogram I did not feel as though I could gain
adequate distal wire access to salvage the kidney due to a number of anatomic limitations.
I therefore proceeded with another attempt to select the right renal artery. Using the steerable sheath, a AMANDA catheter and a 0.[address] wire I was eventually successful at accessing the right renal artery. I exchanged out for a Moya wire
through a Quickcross catheter. A 6 mm x 22 mm iCAST stent was brought into the desired location. The right renal artery fenestration marker was closed by adjusting the C arm obliquity. The stent was properly positioned across the fenestration
under magnification views and deployed by inflating the balloon to nominal pressure. The proximal end of the stent was postdilated using a 10 mm x 20 mm angioplasty balloon. The sheath was then readvanced into the stent. A completion arteriogram
demonstrated an excellent technical result with a patent right renal artery and right renal artery stent with no significant residual stenosis identified.
Satisfied with this result we then concluded the procedure.
The Proglide sutures were secured bilaterally after removing the sheaths and wires. Protamine was administered. Additional pressure was applied to the puncture sites bilaterally for 5 minutes. Hemostasis was achieved bilaterally.
Sterile dressings were applied. The patient had Doppler signals in the feet bilaterally.
The patient tolerated the procedure well and was taken to the PACU in stable condition.
Attestation: I was present and responsible for the entire procedure
Signed:
Greg Olivera III, MD
[facility]
[phone] ([phone])
--- NOTE | 2024-05-04 17:45 | SUR.OPER ---
Received patient to room 3370. Patient AAOx4. on 2L of oxygen via nasal cannula. Is sinus rhythm on monitor. Dopper PT pulses by dopper bilaterally. Verified orders with [facility] and Dr. Zuñiga as patient received novolin in PACU but
not dextrose as ordered. Blood sugar obtained, 134. Patient is having some nausea, obtained order for zofran. Cardene gtt infusing into L wrist at 5mg/hr. Blood pressure still in 180s systolic, titrated up as ordered to maintain SBP 100-165.
Patient has mariscal catheter draining clear yellow urine. Patient has incomplete order for clear liquid diet. 1st unit of PRBCs infusing into left chest wall port. Will verify remaining orders.
[2024-05-04] MEDS: NSS 1000 IV (18:11)
[2024-05-04] MEDS: DEXTROSE 50% SYRINGE 12.5 GRAMS IV (18:12)
[2024-05-04] MEDS: ZOFRAN 4 MG IV (18:13)
--- NOTE | 2024-05-04 18:15 | PTCARENOTE ---
1st unit of blood completed. Tubed sheet to LAB
[2024-05-04] MEDS: LASIX 20 MG PO (18:17)
[2024-05-04 18:19] LABS: Glucose - Point of Care 134 mg/dl (70-99)
[2024-05-04] MEDS: APRESOLINE 25 MG PO (19:40)
[2024-05-04] MEDS: NICODERM TRANSDERMAL 7 MG TRANSDERM (19:40)
[2024-05-04] MEDS: COREG 25 MG PO (19:41)
[2024-05-04] MEDS: NORVASC 5 MG PO (19:41)
[2024-05-04 19:58] LABS: Potassium 4.6 mmol/L (3.5-5.1)
[2024-05-04 20:03] LABS: Glucose - Point of Care 177 mg/dl (70-99)
--- NOTE | 2024-05-04 20:30 | PTCARENOTE ---
rec'd patient. assessment as documented. neurovascular checks ongoing, + DP/PT pulses bilaterally w/ doppler. pt with mild numbness to b/l feet, able to move feet. b/l groin sites with no hematoma or bruising, skin glue intact. oriented x3, SR on
monitor, on 2L NC, denies SOB. repositioned for comfort. mariscal intact. labs sent. repeat H&H at 2130. arterial line leveled and zeroed. cardene gtt and IVF infusing. PRBC infusing through Port. call ruiz within reach, care ongoing.
[2024-05-04] MEDS: HEPARIN 5000 UNITS SC (21:07)
[2024-05-04 22:06] LABS: Hematocrit 30.1 % (37.0-47.0); Hemoglobin 10.1 g/dL (12.0-16.0)
--- NOTE | 2024-05-04 22:18 | PTCARENOTE ---
PRBC finished infusing, repeat H&H sent, Hgb 10.1, Dr Olivera notified via TT
[2024-05-04] MEDS: MORPHINE SULFATE 2 MG IV (23:01)
[2024-05-04] MEDS: HEPARIN SC (23:17)
[2024-05-05] VITALS (18 sets, daily range): BP systolic 131–162; BP diastolic 56–115; BMI 19.8
[2024-05-05] MEDS: CARDENE 200 IV ×2 (02:14→06:03)
[2024-05-05] MEDS: NSS 1000 IV (02:15)
[2024-05-05] MEDS: MORPHINE SULFATE 2 MG IV (04:31)
[2024-05-05 04:56] LABS: Hematocrit 29.8 % (37.0-47.0); Mean Corp Hgb Conc. 33.6 g/dL (33.0-37.0); Mean Corpuscular Volume 80.3 fL (81.0-99.0); Platelet Count 164 10^3/uL (130-400); Red Blood Cell Count 3.71 10^6/uL (4.20-5.40); White Blood Cell Count 9.4 10^3/uL (4.8-10.8)
[2024-05-05 05:00] LABS: INR 1.15; PT 14.5 Sec (11.4-14.6)
[2024-05-05 05:01] LABS: APTT 32.3 Sec (23.4-35.0)
[2024-05-05 05:15] LABS: Blood Urea Nitrogen 28 mg/dl (7-17); Calcium 7.6 mg/dl (8.4-10.2); Carbon Dioxide 22 mmol/L (22-30); Chloride 108 mmol/L (98-107); Estimated Creatinine Clearance 28 ml/min; Glucose 119 mg/dl (70-99); Sodium 141 mmol/L (135-145); eGFR 35.57
--- NOTE | 2024-05-05 05:30 | PTCARENOTE ---
AM labs sent. pt repositioned for comfort, PRN pain meds given overnight, see MAR. sosa gtt continues. mariscal care done. on RA. neurovascular checks continue. call ruiz within reach, care ongoing.
--- NOTE | 2024-05-05 07:45 | PTCARENOTE ---
Received patient from dinkey press operator. patient drowsy but arousable, AAOx4. Has baseline numbness in lower legs, unchanged. She is on room air, 97%. Patient is sinus rhythm on monitor. Cardene gtt infusing at 10mg into left wrist. Rigth radial
A-line zero'ed to atmospheric pressure, correlating with cuff pressure. Patient has tolerated clear liquid diet, advanced to cholesterol lowering. Olivera catheter draining clear/yellow urine. Site checks and neurovascular checks unchanged.
Awaiting vascular team to determine plan of care.
[2024-05-05] MEDS: APRESOLINE 25 MG PO ×2 (07:47→19:41)
[2024-05-05] MEDS: COREG 25 MG PO ×2 (07:48→19:41)
[2024-05-05] MEDS: LASIX 20 MG PO (07:48)
[2024-05-05] MEDS: PLAVIX 75 MG PO (07:49)
[2024-05-05] MEDS: LOW STRENGTH ASPIRIN 81 MG PO (07:49)
[2024-05-05] MEDS: NORVASC 5 MG PO ×2 (07:49→19:41)
[2024-05-05] MEDS: HEPARIN 5000 UNITS SC ×3 (07:50→23:28)
[2024-05-05] MEDS: NICODERM TRANSDERMAL 7 MG TRANSDERM (07:50)
--- NOTE | 2024-05-05 08:12 | W.PN.VS ---
Addendum entered and electronically signed by Greg Olivera III, MD 05/05/24 13:31:
This patient was seen and examined with JERED English. I agree with the history and physical exam as well as the assessment and plan. I have the following additions:
Doing overall postop day 1 PMEG
Comfortable in bed
Abdomen soft and nontender
Groins flat and soft bilaterally
Doppler signals present in both feet
She continues to be hypertensive and is currently on IV nicardipine drip
Initiate home meds
Wean Cardene
Hopefully able to remove A-line and Olivera later today
Regular diet
Antiplatelet therapy
Signed:
Greg Olivera III, MD
[facility]
[phone] (yzqi)
Original Note:
Today's Communication / Plan
-
Seen and assessed with Dr. Olivera
Assessment/Plan
-
POD 1 EVAR with PMEG
Plan:
-Keep A-line and Olivera for now, will reassess BP around noon then will likely DC A-line and Olivera at that time
-Wean Cardene as able
-Patient can get out of bed to chair
-Increase diet
-Oral BP meds
-DC IV fluids
Subjective Data
-
Date of Service: May 05, 2024
Patient seen at bedside this a.mPeter Olivera. Patient is resting comfortably, no complaints. No events overnight. Cardene gtt continues
Objective Data
-
Vital Signs
Temp Pulse Resp BP Pulse Ox
99.7 F 71 14 161/64 98
05/05/24 07:14 05/05/24 06:00 05/05/24 06:00 05/05/24 07:48 05/05/24 07:14
Intake and Output
05/04/24 05/05/24 05/06/24
06:59 06:59 06:59
Intake Total 2800.0 / 2930.0 260 / 260
Output Total 2915 / 3090 350 / 350
Balance -115.0 / -160.0 -90 / -90
Intake:
Oral fluids 480 / 480
IV fluids (Total) 1720.0 / 1850.0 260 / 260
Nss 1,000 ml @ 80 mls/hr IV . 880 / 960 160 / 160
[id number] SAMIRA Rx#:[id number]
cardene 600.0 / 650.0 100 / 100
nss 240 / 240
Blood Products 350 / 350
Packed red blood cells 350 / 350
Blood Product Amount Infused ( 250 / 250
mL)
Packed Rbc Leukoreduced Unit 250 / 250
[id number]
Output:
Urine, Olivera 2915 / 3090 350 / 350
Lab Results
05/05/24 04:38
Calcium 7.6 mg/dl (8.4-10.2) L 05/05/24 04:38
Physical Exam
-
AAOx3
No tachypnea on room air
No tachycardia
Abdomen soft
Bilateral groin sites clean, dry, intact, soft, no drainage or swelling noted
Bilateral feet warm
PT Doppler signals bilaterally
--- NOTE | 2024-05-05 08:13 | W.PN.INTV ---
Today's Communication / Plan
Recommendations
Up OOB as tolerated
Cardene drip weaned off this morning � continue to follow MAP + SBP
Encourage incentive spirometer
Trend H&H and transfuse to keep Hb >7 g/dL
Continue with ICU level care as per vascular surgery; once transferred to telemetry then we will sign off at that time.
Assessment
-
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
endovascular aneurysm repair. Patient known to vascular surgery service with last office visit with Dr. Olivera on 04/15/2024. Patient has a large juxtarenal AAA with significant disease/atheroma throughout the visceral segment. She has bilateral
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 Endovascular intervention was discussed including its risks and benefits. On 05/04/2024, she underwent EVAR with no immediate
complications and was transferred to the ICU postoperatively. Fuel Cell Systems Engineer services now consulted for additional management/recommendations.
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
Impression:
#Juxtarenal AAA without rupture s/p EVAR (POD #1)
#Anemia
#Active tobacco use disorder (currently smoking 0.25PPD with 11-sape-gjgx Hx)
#History of right-sided ER(+), [place] (-), HER2 (-) breast cancer (invasive ductal carcinoma diagnosed in February 2024)
#CKD III
#HFmrEF
#Valvular heart disease with mild�moderate MR
#Moderate pulmonary hypertension
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
Plan:
Postoperative surgical intensive care unit monitoring
Supplemental oxygen as needed to maintain SpO2 >90-94%
prn nebulized bronchodilators -- not currently bronchospastic
Incentive spirometry encouraged 10x per hour for at least 4 hrs a day
Aspiration precautions
Pain control
Neuro and vascular checks per protocol
Maintain MAP>65
Replete electrolytes with K>4, Mg>2
Maintain euglycemia with goal BG 140-180
Vascular surgery following-correspondence and operative notes reviewed
Transfuse blood products as needed to keep Hb>7g/dL, and plt>50k (given post-operative status)
Nicotine patch
DVT prophylaxis
Early nutrition
Early mobilization
Given her tobacco smoking history with >97-ovry-ldut history with her age between 50�80, she does qualify for annual LDCT chest for lung cancer screening. Because of her right-sided breast cancer, she follows with oncology. Will coordinate between
us and oncology regarding future imaging studies of her chest and if patient wishes to follow-up with us in the office then that is certainly an option.
Continue with ICU level of care until specified otherwise for downgrade per vascular surgery. Fuel Cell Systems Engineer service will continue to follow along while she remains in the ICU. Once transferred to telemetry then we will sign off at that time.
Total time spent today was 75 minutes for this encounter. Time includes reviewing laboratory test/imaging results, reviewing pertinent medical records, obtaining and reviewing medical history, performing an appropriate exam, ordering medications,
tests and procedures. Time also includes documentation of this encounter, coordinating patient care and communicating with other healthcare professionals. Total time does not include separately billed tests performed on this date of service.
Subjective Dataa
Subjective Data
Date of Service:
Date of Service: May 05, 2024
Chief Complaint: Fuel Cell Systems Engineer Follow Up
Subjective:
Patient seen and evaluated this morning. She is sitting in a chair in no acute distress this morning. Heart rate 77 and BP 150/56. Cardene drip has now been weaned off as of 9AM this AM. On room air saturating 97%. She has minimal complaints
although still has some pain in her tailbone that she says is from the bed. She denies chest pain, SOB, SAN, abdominal pain, nausea, fevers or chills.
Review of Systems
General: Other (Negative unless mentioned above)
Objective Data
Data Reviewed
Vital Signs / I&O / Oxygen:
Vital Signs
Temp Pulse Resp BP Pulse Ox
99.7 F 83 18 159/61 97
05/05/24 07:14 05/05/24 09:00 05/05/24 09:00 05/05/24 08:00 05/05/24 09:00
Intake and Output
05/04/24 05/05/24 05/06/24
06:59 06:59 06:59
Intake Total 2800.0 / 2930.0 710 / 710
Output Total 2915 / 3365 1025 / 1025
Balance -115.0 / -435.0 -315 / -315
SaO2 97
Nasal Cannula flow liters per 2
minute
Physical Exam
General: Respiratory Distress (negative), Comfortable, Chills (negative) and Sweats (negative)
HEENT: Normocephalic and Anicteric
Cardiovascular: S1-S2, Murmur (MASOUD heard in anterior precordium, best at RUSB) and Peripheral Edema (negative)
Respiratory: Wheeze (negative), Crackles (left posterior base), Rhonchi (negative) and Non-Labored Respirations
GI: Soft, Non Distended, Non Tender and Normal Bowel Sounds
Neurology: AO x 3 and Tremors (negative)
Skin: Warm, Dry and Jaundice (negative)
Labs/Micro/Reports
Lab Data
05/05/24 04:38
Laboratory Results
05/04/24 05/05/24
15:08 04:38
PT 16.1 H 14.5
INR 1.31 1.15
APTT 34.8 32.3
--- NOTE | 2024-05-05 08:28 | PTCARENOTE ---
Dr. Olivera at bedside. May change some home meds to wean patient off cardene. Once cardene is off, will discontinue A-line and get patient OOB. Physician to round again early afternoon.
[2024-05-05 10:28] LABS: Hematocrit 29.2 % (37.0-47.0); Hemoglobin 9.9 g/dL (12.0-16.0)
--- NOTE | 2024-05-05 11:11 | PTCARENOTE ---
Weaned off cardene gtt at 0900. Discontinued A-line, mariscal cather and assisted patient OOB to chair. Patient then felt urge to void, and was able to urinate 100ml.
--- NOTE | 2024-05-05 15:55 | PTCARENOTE ---
patient has ambulated in room, continuing to void in toilet. No changes in assessment at this time.
[2024-05-05 17:51] LABS: Hematocrit 31.4 % (37.0-47.0); Hemoglobin 10.6 g/dL (12.0-16.0)
[2024-05-05] MEDS: TYLENOL 650 MG PO (19:40)
[2024-05-05] MEDS: COLACE 100 MG PO (19:41)
--- NOTE | 2024-05-05 20:11 | PTCARENOTE ---
rec'd patient. assessment as documented. oob with assist x1 to bathroom. SR on monitor, low grade temp, PRN tylenol given. on RA, denies SOB. b/l groin sites well approximated, no bruising noted. + b/l doppler DP and PT pulses. denies pain at this
time. call ruiz within reach, care ongoing.
[2024-05-06] VITALS (10 sets, daily range): BP systolic 141–178; BP diastolic 51–71; BMI 18.4
--- NOTE | 2024-05-06 03:46 | PTCARENOTE ---
AM labs sent. heparin lock flush thru port. pt with episode of incontinence, pt cleaned and new linens given. denies pain. call ruiz within reach, care ongoing.
[2024-05-06 03:51] LABS: Hematocrit 27.7 % (37.0-47.0); Hemoglobin 9.4 g/dL (12.0-16.0); Mean Corp Hgb Conc. 33.9 g/dL (33.0-37.0); Mean Corpuscular Hgb 26.6 pg (27.0-31.0); Mean Corpuscular Volume 78.2 fL (81.0-99.0); Mean Platelet Volume 8.9 fL (7.4-10.4); Platelet Count 152 10^3/uL (130-400); Red Blood Cell Count 3.54 10^6/uL (4.20-5.40); Red Cell Dist. Width 17.4 % (11.5-14.5); White Blood Cell Count 11.2 10^3/uL (4.8-10.8)
[2024-05-06 04:35] LABS: Blood Urea Nitrogen 29 mg/dl (7-17); Calcium 8.3 mg/dl (8.4-10.2); Carbon Dioxide 25 mmol/L (22-30); Chloride 103 mmol/L (98-107); Estimated Creatinine Clearance 26 ml/min; Glucose 83 mg/dl (70-99); Potassium 3.5 mmol/L (3.5-5.1); Sodium 138 mmol/L (135-145); eGFR 35.57
[2024-05-06] MEDS: KCL 160 MEQ IV (06:27)
--- NOTE | 2024-05-06 07:58 | W.PN.VS ---
Addendum entered and electronically signed by Babar Chandler MD 05/06/24 10:19:
Seen and examined with [facility]. Agree with findings as noted below. Patient without complaints. Abdomen soft, nondistended, nontender. Groins flat bilaterally. Feet are warm. Plan/as discussed and noted below.
Original Note:
Today's Communication / Plan
-
Seen and assessed with Dr. Chandler
Assessment/Plan
-
POD 2 EVAR with PMEG
Plan:
-Okay to DC home
Subjective Data
-
Date of Service: May 06, 2024
Patient seen at bedside this a.m. with Dr. Chandler. No complaints at this time, no events overnight. States she is feeling well and ready to go home
Objective Data
-
Vital Signs
Temp Pulse Resp BP Pulse Ox
99.6 F 72 15 167/54 97
05/06/24 07:49 05/06/24 06:00 05/06/24 06:00 05/06/24 06:00 05/06/24 06:00
Intake and Output
05/05/24 05/06/24 05/07/24
06:59 06:59 06:59
Intake Total 2800.0 / 2930.0 2030 / 2029
Output Total 2915 / 3365 2775 / 2775
Balance -115.0 / -435.0 -745 / -745
Intake:
Oral fluids 480 / 480 1770 / 1770
IV fluids (Total) 1720.0 / 1850.0 260 / 260
Nss 1,000 ml @ 80 mls/hr IV . 880 / 960 160 / 160
[id number] SAMIRA Rx#:[id number]
cardene 600.0 / 650.0 100 / 100
nss 240 / 240
Blood Products 350 / 350
Packed red blood cells 350 / 350
Blood Product Amount Infused ( 250 / 250
mL)
Packed Rbc Leukoreduced Unit 250 / 250
[id number]
Output:
Urine, Olivera 2915 / 3365 1225 / 1225
Urine, Voided 1550 / 1550
Other:
Number of approximated MODERATE 3
amounts of urine
Lab Results
05/06/24 03:42
05/06/24 03:42
Calcium 8.3 mg/dl (8.4-10.2) L 05/06/24 03:42
Physical Exam
-
AAOx3
No tachypnea on room air
No tachycardia
Abdomen soft
Bilateral groin sites clean, dry, intact, soft, no drainage or swelling noted
Bilateral feet warm
PT Doppler signals bilaterally
--- NOTE | 2024-05-06 07:59 | W.DS.TRANS ---
DC Summary - Civilian Technician
-
Discharge Instructions:
Discharge Diagnosis/Procedures Percutaneous back-table physician modified
fenestrated aortic stent graft repair of
pararenal abdominal aortic aneurysm
Bilateral renal artery stenting for fenestrated
stent graft repair
Balloon angioplasty and stenting of superior
mesenteric artery
Diet As tolerated
Activity No strenuous activity
Driving Restrictions No driving for 1 week
Bathing Restrictions OK to Shower
Instructions:
Stand-Alone Forms: DC Instr - Vascular OR
Changes to Home Medications: Yes
Discharge Medications:
DC Medications w/original date entered in [facility]
aspirin 81 mg chewable tablet 81 mg PO DAILY #30 tabs 03/03/24
carvedilol 25 mg tablet 25 mg PO BID #60 tabs 03/03/24
furosemide 20 mg tablet 20 mg PO DAILY #30 tabs 03/03/24
lisinopril 5 mg tablet 5 mg PO DAILY #30 tabs 03/03/24
amlodipine 5 mg tablet 5 mg PO BID Blood Pressure 04/06/24
hydralazine 25 mg tablet 25 mg PO BID Blood Pressure 04/08/24
dapagliflozin propanediol 10 mg tablet (Farxiga) 10 mg PO DAILY Diabetes 05/04/24
spironolactone 25 mg tablet 12.5 mg PO DAILY Fluid Retention/Swelling 05/04/24
clopidogrel 75 mg tablet 75 mg PO DAILY #90 tabs 05/05/24
Home Medication Changes
Added Plavix
Spironolactone on hold per patient
Pending Results: No
[2024-05-06] MEDS: APRESOLINE 25 MG PO (08:11)
[2024-05-06] MEDS: COLACE 100 MG PO (08:12)
[2024-05-06] MEDS: HEPARIN 5000 UNITS SC (08:12)
[2024-05-06] MEDS: NORVASC 5 MG PO (08:12)
[2024-05-06] MEDS: PLAVIX 75 MG PO (08:12)
[2024-05-06] MEDS: NICODERM TRANSDERMAL 7 MG TRANSDERM (08:12)
[2024-05-06] MEDS: COREG 25 MG PO (08:13)
[2024-05-06] MEDS: LOW STRENGTH ASPIRIN 81 MG PO (08:13)
[2024-05-06] MEDS: LASIX 20 MG PO (08:13)
--- NOTE | 2024-05-06 08:14 | W.PN.INTV ---
Today's Communication / Plan
Recommendations
Up OOB as tolerated
MAP>65
Encourage incentive spirometer
Trend H&H and transfuse to keep Hb >7 g/dL
Patient is being prepared for discharge home. Baggage Porter Head/Pulmonary service will now sign off. I will arrange for outpatient office follow-up regarding her active tobacco use and need for continued radiographic surveillance for development of lung
cancer. Please call back with any questions or concerns.
Assessment
-
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
endovascular aneurysm repair. Patient known to vascular surgery service with last office visit with Dr. Olivera on 04/15/2024. Patient has a large juxtarenal AAA with significant disease/atheroma throughout the visceral segment. She has bilateral
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 Endovascular intervention was discussed including its risks and benefits. On 05/04/2024, she underwent EVAR with no immediate
complications and was transferred to the ICU postoperatively. Baggage Porter Head services now consulted for additional management/recommendations.
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
Impression:
#Juxtarenal AAA without rupture s/p EVAR (POD #2)
#Anemia
#Active tobacco use disorder (currently smoking 0.25PPD with 23-pvdd-agbs Hx)
#History of right-sided ER(+), [place] (-), HER2 (-) breast cancer (invasive ductal carcinoma diagnosed in February 2024)
#CKD III
#HFmrEF
#Valvular heart disease with mild�moderate MR
#Moderate pulmonary hypertension
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
Plan:
Postoperative surgical intensive care unit monitoring
Maintain SpO2 >90-94%
prn nebulized bronchodilators -- not currently bronchospastic
Incentive spirometry encouraged 10x per hour for at least 4 hrs a day
Aspiration precautions
Pain control
Neuro and vascular checks per protocol
Maintain MAP>65
Replete electrolytes with K>4, Mg>2
Maintain euglycemia with goal BG 140-180
Vascular surgery following-correspondence and operative notes reviewed
Transfuse blood products as needed to keep Hb>7g/dL, and plt>50k (given post-operative status)
Nicotine patch
DVT prophylaxis
Early nutrition
Early mobilization
Given her tobacco smoking history with >11-vqoa-ysfs history with her age between 50�80, she does qualify for annual LDCT chest for lung cancer screening. Because of her right-sided breast cancer, she follows with oncology. Will coordinate between
us and oncology regarding future imaging studies of her chest and if patient wishes to follow-up with us in the office then that is certainly an option.
Patient is being prepared for discharge home. Baggage Porter Head/Pulmonary service will now sign off. Thank you for allowing us to be involved in the care of this patient. Please reconsult if there are any additional questions/concerns, or if patient's
respiratory status deteriorates.
Total time spent today was 25 minutes for this encounter. Time includes reviewing laboratory test/imaging results, reviewing pertinent medical records, obtaining and reviewing medical history, performing an appropriate exam, ordering medications,
tests and procedures. Time also includes documentation of this encounter, coordinating patient care and communicating with other healthcare professionals. Total time does not include separately billed tests performed on this date of service.
Subjective Dataa
Subjective Data
Date of Service:
Date of Service: May 06, 2024
Chief Complaint: Baggage Porter Head Follow Up
Subjective:
Patient seen and evaluated this morning. Heart rate 71, BP 150/70 and saturating 98% on room air. She is being prepared for discharge home today; no acute events reported from overnight. She has no complaints this morning, denying chest pain,
SOB, abdominal pain, fevers or chills.
Review of Systems
General: Other (Negative unless mentioned above)
Objective Data
Data Reviewed
Vital Signs / I&O / Oxygen:
Vital Signs
Temp Pulse Resp BP Pulse Ox
99.6 F 72 15 167/54 97
05/06/24 07:49 05/06/24 06:00 05/06/24 06:00 05/06/24 06:00 05/06/24 06:00
Intake and Output
05/05/24 05/06/24 05/07/24
06:59 06:59 06:59
Intake Total 2800.0 / 2930.0 2030 / 2030
Output Total 2915 / 3365 2775 / 2775
Balance -115.0 / -435.0 -745 / -745
SaO2 97
Nasal Cannula flow liters per 2
minute
Physical Exam
General: Respiratory Distress (negative), Comfortable, Chills (negative) and Sweats (negative)
HEENT: Normocephalic and Anicteric
Cardiovascular: S1-S2, Murmur (MASOUD heard in anterior precordium, best at RUSB) and Peripheral Edema (negative)
Respiratory: Clear, Wheeze (negative), Crackles (bibasilar), Rhonchi (negative) and Non-Labored Respirations
GI: Soft, Non Distended, Non Tender and Normal Bowel Sounds
Neurology: AO x 3 and Tremors (negative)
Skin: Warm, Dry and Jaundice (negative)
Labs/Micro/Reports
Lab Data
05/06/24 03:42
05/06/24 03:42
--- NOTE | 2024-05-06 09:00 | PTCARENOTE ---
Assumed care of pt from night RN, systems reviewed, pt AAOx3 reports no pain, Sinus with + radials, doppler pedals, reports mild numbness in LE's but baseline, lungs clear diminished throughout, pt due to void, belly soft non-tender, BSx4, B/L
puncture groin sites approximated and open to air with no drainage, 20G LW, L chest port, pt able to make needs known, otherwise refer to documentation.
--- NOTE | 2024-05-06 09:44 | CM ---
CM medical records. Patient is medically ready for discharge to home. No needs noted.
PLAN: Home no needs.
[2024-05-06] MEDS: FLUSH (NSS) 1 FLUSH IV (10:56)
--- NOTE | 2024-05-06 11:00 | PTCARENOTE ---
Discharge instructions reviewed with patient.Questions arose from patient involving Farxiga, Spironolactone and Lisinopril. Pt states that she was instructed to hold Farxiga and Spironolactone. Spironolactone and Farxiga were held during this
admission, and Lisinopril was not written for administration for this admission. Farxiga and Lisinopril were initially written to be resumed in discharge instructions. Lynn LEE was contacted and Farxiga is to remain on hold upon discharge,and
Lisinopril is to be resumed on discharge.This information was relayed to [facility] and discharge instructions were revised.This information was explained to pt with pt readback with verbalization of understanding of instructions.
[2024-05-06] MEDS: ZESTRIL 5 MG PO (11:43)
--- NOTE | 2024-05-06 12:00 | PTCARENOTE ---
Received d/c orders, discharge instruction provided, pts meds clarified with pharmacy and auto appraiser and updated on discharge paperwork, chest port flushed per order, medical equipment removed from pt, pt was able to dress self, pt take down in
wheelchair by PCT @ 1230.
--- NOTE | 2024-05-07 12:51 | PN.CDI ---
CDI
- -
CDI:
Physician Documentation Request
Admit Date: 05/04/24 05:54
Dear Unique LAWTON,
Patient admitted with juxtarenal AAA without rupture s/p EVAR.
05/06 Nutrition note, 'As per external medical summary report pt was 107lbs on 04/15. CBW reflects a loss of 35lbs or 25% change in 2 months-note per pre-procedure cardiac clearance report on 04/05/24 it was documented that pt had a 32lbs wt loss
without change in appetite but improve LE edema with ability to put on shoes. Pt was observed with clavicle protrusion, depression of temporal and some rib exposure-reflecting fat and muscle loss. Pt meets ASPEN/AND mild protein calorie malnutrition
of chronic illness per NFPE and recent decline in intake.
Please provide in your note the diagnosis associated with the above findings and your assessment:
Mild protein calorie malnutrition
Moderate protein calorie malnutrition
Other (please specify)
[place] Criteria (ACP Hospitalist 2017)
2 or more criteria must be present for either
non severe or severe malnutrition
Note that the criteria differs related to the
presence of an acute or chronic illness
Chronic Illness
Energy Intake Non Severe: <75% for >1 month
Severe: <75% for >1 month
Weight Loss Non Severe: 5% over 1 month
7.5% over 3 months
10% over 6 months
20% over 1 year
Severe: >5% over 1 month
>7.5% over 3 months
>10% over 6 months
>20% over 1 year
Body Fat Non Severe: Mild Loss
Severe: Severe Loss
Muscle Mass Non Severe: Mild Loss
Severe: Severe Loss
Fluid Accumulation Non Severe: Mild Accumulation
Severe: Moderate to severe
accumulation
Reduced Java Software Developer Strength Non Severe: N/A
Severe: Measurably reduced
Use of terms such as suspected, likely, concern for, or probable (associated with a specific diagnosis that is being evaluated, monitored, or treated as if it exists) are acceptable and can be coded in the inpatient setting, when documented at the
time of discharge.
Thank you,
Kellie MEYER,RN,CCDS
CDI Specialist
Available via [place] text
Please use your independent medical judgment in providing your response.
--- NOTE | 2024-05-11 16:15 | W.PN.UPDATE ---
Update Note
Progress Note Update
CDI:
Physician Documentation Request
Admit Date: 05/04/24 05:54
Patient admitted with juxtarenal AAA without rupture s/p EVAR.
05/06 Nutrition note, 'As per external medical summary report pt was 107lbs on 04/15. CBW reflects a loss of 35lbs or 25% change in 2 months-note per pre-procedure cardiac clearance report on 04/05/24 it was documented that pt had a 32lbs wt loss
without change in appetite but improve LE edema with ability to put on shoes. Pt was observed with clavicle protrusion, depression of temporal and some rib exposure-reflecting fat and muscle loss. Pt meets ASPEN/AND mild protein calorie malnutrition
of chronic illness per NFPE and recent decline in intake.
Please provide in your note the diagnosis associated with the above findings and your assessment:
Agree with Nutritions note: Mild protein calorie malnutrition- meets criteria
== END 2024-05-06 12:25 | disposition home or self-care (01) | DRG 269 ==
LOC: ICU 05:54
PROVIDERS: Nurse Practitioner Acute Care; ADMITTING PHYSICIAN Surgery Vascular Surgery; CONSULT PHYSICIAN Internal Medicine Critical Care Medicine; FAMILY PHYSICIAN Surgery
PROC: 04V03FZ Restriction of Abdominal Aorta with Branched or Fenestrated Intraluminal Device, Three or More Arteries, Percutaneous Approach (ICD-10-PCS; 2024-05-04)
DX: I71.42 Juxtarenal abdominal aortic aneurysm, without rupture (principal); I13.0 Hypertensive heart and chronic kidney disease with heart failure and stage 1 through stage 4 chronic kidney disease, or unspecified chronic kidney disease; I50.22 Chronic systolic (congestive) heart failure; E44.1 Mild protein-calorie malnutrition; Z68.1 Body mass index [BMI] 19.9 or less, adult; I27.20 Pulmonary hypertension, unspecified; C50.911 Malignant neoplasm of unspecified site of right female breast; I70.1 Atherosclerosis of renal artery; I77.1 Stricture of artery; I34.0 Nonrheumatic mitral (valve) insufficiency; N18.30 Chronic kidney disease, stage 3 unspecified; F17.210 Nicotine dependence, cigarettes, uncomplicated; Z17.0 Estrogen receptor positive status [ER+]; Z79.82 Long term (current) use of aspirin; Z79.899 Other long term (current) drug therapy; Z79.52 Long term (current) use of systemic steroids; Z82.49 Family history of ischemic heart disease and other diseases of the circulatory system
CPT/HCPCS: 34713; 34847; 36415; 80048; 82962; 84132; 85014; 85018; 85025; 85027; 85610; 85730; 86850; 86900; 86901; 86920; 93005; 99406; C1725; C1760; C1769; C1773; C1887; C1894; C2628; P9016; Q9967

== ENCOUNTER → 2024-05-10 14:33 | Outpatient (REF) | payer OTHER, SELFPAY ==
[2024-05-10 14:39] LABS: % Basophils 0.4 % (0-2); % Eosinophils 2.2 % (0-6); % Immature Granulocytes 1.1 % (0-0.5); % Lymphocytes 15.3 % (20.5-51.1); % Monocytes 14.3 % (1.7-9.3); % Neutrophils 66.7 % (42.2-75.2); Absolute Eosinophils 0.2 10^3/uL (0-0.7); Absolute Immature Granulocytes 0.1 10^3/uL (0-0.05); Absolute Lymphocytes 1.1 10^3/uL (1.2-3.4); Absolute Neutrophils 4.7 10^3/uL (1.4-6.5); Hematocrit 29.3 % (37.0-47.0); Hemoglobin 9.6 g/dL (12.0-16.0); Mean Corp Hgb Conc. 32.8 g/dL (33.0-37.0); Mean Corpuscular Hgb 26.6 pg (27.0-31.0); Mean Corpuscular Volume 81.2 fL (81.0-99.0); Mean Platelet Volume 9.4 fL (7.4-10.4); Nucleated Red Blood Cells % 0 %; Platelet Count 273 10^3/uL (130-400); Red Blood Cell Count 3.61 10^6/uL (4.20-5.40); Red Cell Dist. Width 17.3 % (11.5-14.5); White Blood Cell Count 7.1 10^3/uL (4.8-10.8)
== END ==
LOC: OIDL 14:33
PROVIDERS: ATTENDING PHYSICIAN Internal Medicine Hematology & Oncology
DX: C50.811 Malignant neoplasm of overlapping sites of right female breast (principal)
CPT/HCPCS: 85025

== ENCOUNTER → 2024-05-17 16:13 | Outpatient (REF) | payer OTHER, SELFPAY ==
[2024-05-17 14:18] LABS: % Basophils 0.3 % (0-2); % Eosinophils 1.9 % (0-6); % Immature Granulocytes 0.4 % (0-0.5); % Lymphocytes 18.2 % (20.5-51.1); % Monocytes 12.1 % (1.7-9.3); % Neutrophils 67.1 % (42.2-75.2); Absolute Eosinophils 0.1 10^3/uL (0-0.7); Absolute Lymphocytes 1.3 10^3/uL (1.2-3.4); Absolute Monocytes 0.9 10^3/uL (0.1-0.6); Absolute Neutrophils 4.9 10^3/uL (1.4-6.5); Hematocrit 28.9 % (37.0-47.0); Hemoglobin 9.4 g/dL (12.0-16.0); Mean Corp Hgb Conc. 32.5 g/dL (33.0-37.0); Mean Corpuscular Hgb 26.8 pg (27.0-31.0); Mean Corpuscular Volume 82.3 fL (81.0-99.0); Mean Platelet Volume 8.8 fL (7.4-10.4); Nucleated Red Blood Cells % 0 %; Platelet Count 514 10^3/uL (130-400); Red Blood Cell Count 3.51 10^6/uL (4.20-5.40); Red Cell Dist. Width 16.9 % (11.5-14.5); White Blood Cell Count 7.4 10^3/uL (4.8-10.8)
[2024-05-17 14:30] LABS: ALT (SGPT) 13 U/L (0-35); AST (SGOT) 21 U/L (14-36); Albumin 3.7 g/dl (3.5-5.0); Alkaline Phosphatase 117 U/L (38-126); Blood Urea Nitrogen 29 mg/dl (7-17); Calcium 8.8 mg/dl (8.4-10.2); Carbon Dioxide 26 mmol/L (22-30); Chloride 101 mmol/L (98-107); Glucose 108 mg/dl (70-99); Sodium 137 mmol/L (135-145); Total Bilirubin 0.3 mg/dl (0.2-1.3); Total Protein 7.1 g/dl (6.3-8.2); eGFR 27.21
== END ==
LOC: OIDL 16:13
PROVIDERS: ATTENDING PHYSICIAN Internal Medicine Hematology & Oncology
DX: C50.811 Malignant neoplasm of overlapping sites of right female breast (principal)
CPT/HCPCS: 80053; 85025

== ENCOUNTER → 2024-05-24 10:20 | Outpatient (REF) | payer OTHER, SELFPAY ==
[2024-05-24 09:58] LABS: % Basophils 0.6 % (0-2); % Eosinophils 2.1 % (0-6); % Immature Granulocytes 0.6 % (0-0.5); % Lymphocytes 20.5 % (20.5-51.1); % Monocytes 12.1 % (1.7-9.3); % Neutrophils 64.1 % (42.2-75.2); Absolute Eosinophils 0.2 10^3/uL (0-0.7); Absolute Lymphocytes 1.4 10^3/uL (1.2-3.4); Absolute Monocytes 0.9 10^3/uL (0.1-0.6); Absolute Neutrophils 4.5 10^3/uL (1.4-6.5); Hematocrit 28.3 % (37.0-47.0); Hemoglobin 9.1 g/dL (12.0-16.0); Mean Corp Hgb Conc. 32.2 g/dL (33.0-37.0); Mean Corpuscular Hgb 27.6 pg (27.0-31.0); Mean Corpuscular Volume 85.8 fL (81.0-99.0); Nucleated Red Blood Cells % 0 %; Platelet Count 387 10^3/uL (130-400); Red Cell Dist. Width 16.7 % (11.5-14.5)
[2024-05-24 10:20] LABS: ALT (SGPT) 12 U/L (0-35); AST (SGOT) 21 U/L (14-36); Albumin 3.6 g/dl (3.5-5.0); Alkaline Phosphatase 111 U/L (38-126); Blood Urea Nitrogen 27 mg/dl (7-17); Carbon Dioxide 25 mmol/L (22-30); Chloride 101 mmol/L (98-107); Glucose 88 mg/dl (70-99); Potassium 4.1 mmol/L (3.5-5.1); Sodium 139 mmol/L (135-145); Total Bilirubin 0.4 mg/dl (0.2-1.3); eGFR 28.94
== END ==
LOC: OIDL 10:20
PROVIDERS: ATTENDING PHYSICIAN Internal Medicine Hematology & Oncology
DX: C50.811 Malignant neoplasm of overlapping sites of right female breast (principal)
CPT/HCPCS: 80053; 85025

== ENCOUNTER → 2024-06-03 12:38 | Outpatient (REF) | payer OTHER, SELFPAY | LOC: RAD 12:38 | PROVIDERS: ATTENDING PHYSICIAN Physician Assistant | DX: I71.42 Juxtarenal abdominal aortic aneurysm, without rupture (principal); Z98.890 Other specified postprocedural states | CPT/HCPCS: 76770; 93975 ==

== ENCOUNTER → 2024-06-15 10:14 | Outpatient (REF) | payer OTHER, SELFPAY ==
[2024-06-15 11:29] LABS: % Basophils 0.4 % (0-2); % Eosinophils 0.7 % (0-6); % Immature Granulocytes 0.7 % (0-0.5); % Lymphocytes 17.1 % (20.5-51.1); % Monocytes 9.5 % (1.7-9.3); % Neutrophils 71.6 % (42.2-75.2); Absolute Basophils 0.1 10^3/uL (0-0.2); Absolute Eosinophils 0.1 10^3/uL (0-0.7); Absolute Immature Granulocytes 0.1 10^3/uL (0-0.05); Absolute Lymphocytes 2.5 10^3/uL (1.2-3.4); Absolute Monocytes 1.4 10^3/uL (0.1-0.6); Absolute Neutrophils 10.4 10^3/uL (1.4-6.5); Hematocrit 25.7 % (37.0-47.0); Hemoglobin 8.1 g/dL (12.0-16.0); Mean Corp Hgb Conc. 31.5 g/dL (33.0-37.0); Mean Corpuscular Hgb 27.6 pg (27.0-31.0); Mean Corpuscular Volume 87.7 fL (81.0-99.0); Mean Platelet Volume 9.3 fL (7.4-10.4); Nucleated Red Blood Cells % 0 %; Platelet Count 446 10^3/uL (130-400); Red Blood Cell Count 2.93 10^6/uL (4.20-5.40); Red Cell Dist. Width 16.8 % (11.5-14.5); White Blood Cell Count 14.5 10^3/uL (4.8-10.8)
[2024-06-15 11:43] LABS: ALT (SGPT) 35 U/L (0-35); AST (SGOT) 31 U/L (14-36); Albumin 3.3 g/dl (3.5-5.0); Alkaline Phosphatase 110 U/L (38-126); Blood Urea Nitrogen 30 mg/dl (7-17); Calcium 8.8 mg/dl (8.4-10.2); Carbon Dioxide 25 mmol/L (22-30); Chloride 104 mmol/L (98-107); Glucose 107 mg/dl (70-99); Potassium 4.5 mmol/L (3.5-5.1); Sodium 140 mmol/L (135-145); Total Bilirubin 0.2 mg/dl (0.2-1.3); Total Protein 6.4 g/dl (6.3-8.2); eGFR 33.07
== END ==
LOC: REG 10:14
PROVIDERS: ATTENDING PHYSICIAN Internal Medicine Hematology & Oncology
DX: C50.811 Malignant neoplasm of overlapping sites of right female breast (principal); D50.9 Iron deficiency anemia, unspecified
CPT/HCPCS: 36415; 80053; 85025

== ENCOUNTER 2024-07-02 06:53 | Emergency (ER) | payer OTHER, SELFPAY ==
[2024-07-02 06:56] VITALS: BP 124/24
[2024-07-02 07:04] LABS: Glucose - Point of Care 387 mg/dl (70-99)
--- NOTE | 2024-07-02 07:06 | EDRN ---
CPR in progress.
[2024-07-02 07:12] LABS: PCO2 25 mmHg (32-35)
[2024-07-02 07:18] LABS: pH < 6.80 (7.35-7.45)
[2024-07-02 07:19] LABS: PO2 14 mmHg (83-108)
--- NOTE | 2024-07-02 07:21 | EDRN ---
Dr Katz aware of marked anemia.
[2024-07-02 07:22] LABS: % Basophils 0.1 % (0-2); % Eosinophils 0.2 % (0-6); % Immature Granulocytes 14.8 % (0-0.5); % Lymphocytes 6.4 % (20.5-51.1); % Monocytes 1.8 % (1.7-9.3); % Neutrophils 76.7 % (42.2-75.2); Absolute Basophils 0.1 10^3/uL (0-0.2); Absolute Eosinophils 0.1 10^3/uL (0-0.7); Absolute Immature Granulocytes 6.1 10^3/uL (0-0.05); Absolute Lymphocytes 2.7 10^3/uL (1.2-3.4); Absolute Monocytes 0.8 10^3/uL (0.1-0.6); Absolute Neutrophils 31.7 10^3/uL (1.4-6.5); Hematocrit 8.3 % (37.0-47.0); Hemoglobin 2.6 g/dL (12.0-16.0); Mean Corp Hgb Conc. 31.3 g/dL (33.0-37.0); Mean Corpuscular Hgb 29.9 pg (27.0-31.0); Mean Corpuscular Volume 95.4 fL (81.0-99.0); Mean Platelet Volume 11.2 fL (7.4-10.4); Nucleated Red Blood Cells % 1.1 %; O2 Therapy 100%; Platelet Count 40 10^3/uL (130-400); Red Blood Cell Count 0.87 10^6/uL (4.20-5.40); Red Cell Dist. Width 18.5 % (11.5-14.5); White Blood Cell Count 41.4 10^3/uL (4.8-10.8)
[2024-07-02 07:32] LABS: Albumin 1.3 g/dl (3.5-5.0); Alkaline Phosphatase 91 U/L (38-126); Blood Urea Nitrogen 92 mg/dl (7-17); Carbon Dioxide < 5 mmol/L (22-30); Chloride 107 mmol/L (98-107); Glucose 432 mg/dl (70-99); Magnesium 2.7 mg/dl (1.6-2.3); Phosphorus 11.9 mg/dl (2.5-4.5); Potassium 6.5 mmol/L (3.5-5.1); Sodium 135 mmol/L (135-145); Total Bilirubin 0.4 mg/dl (0.2-1.3); Total Protein 2.9 g/dl (6.3-8.2); eGFR 18.17
[2024-07-02 07:37] VITALS: BP 133/71
[2024-07-02 07:40] LABS: Troponin I 0.059 ng/ml
[2024-07-02 07:41] LABS: ALT (SGPT) 2374 U/L (0-35); AST (SGOT) 3450 U/L (14-36)
--- NOTE | 2024-07-02 07:41 | ED.GENMED ---
History of Present Illness
General
Chief Complaint: CODE
Source: records, family and ambulance crew
Exam Limitations: clinical condition
Time Seen by Provider: 07/02/24 07:10
Nursing documentation reviewed up to this point in time: agreed with
History of Present Illness
History of Present Illness:
64-year-old female with a past medical history of hypertension, CHF, advanced breast cancer on chemotherapy who presents to the emergency room via EMS status post cardiac arrest. According to EMS report they were called for unresponsive patient and
on arrival patient was responsive to painful stimuli and shortly after their arrival patient became bradycardic and lost pulses. CPR was initiated and she was intubated in the field. She received a total of 30 minutes of ACLS in the field prior to
initial ROSC. She was then transported to the hospital; she had another brief cardiac arrest and 5 to 10 minutes of CPR during transport but once again obtained ROSC. Initial rhythm in the field was fine V-fib and she received 2 defibrillations
which were unsuccessful; asystole/PEA since. She received 4 rounds of epinephrine. She was noted to be hypoglycemic with a glucose of 40 she was given 250 cc of D10. She was given 1 L of normal saline. She was also given 20 mcg of push dose
epinephrine for hypotension in the field.
Review of chart shows prior admission in February for CHF and for repair of thoracic aortic aneurysm in April. I spoke to the family after initial resuscitation they note that she was awake and alert yesterday she was having diarrhea which they
attributed to chemotherapy. Reviewed her medication list she is on Plavix.
Past History
Past History
ED Past Medical History: HTN; Negative Asthma, Hypercholesterolemia or NIDDM
ED Past Surgical History: None
Social History
Tobacco: Smoker
Alcohol: Occasional
Personal:
Living: alone
Review of Systems
Review of Systems
Unable to obtain full review of systems at this time due to: due to acuity
All Other Systems: Not applicable
Phy Exam
Physical Exam
Physical Exam:
General: Unresponsive, intubated
Head: Normocephalic, atraumatic
Eyes: Conjunctiva pale, pupils fixed
Throat: Intubated
Neck: Trachea midline, no JVD
Lungs: Bilateral breath sounds present
Heart: Regular rate and irregular rhythm, no murmurs, gallops, or rubs appreciated
Abd: Soft, non distended
Rectal: Gross melena, confirmed Hemoccult positive
Neuro: Unresponsive
Skin: Pale
Extremities: Cool with poor distal perfusion and thready pulses
Scores
Heart Failure Risk
Heart Failure Risk Score: Not Applicable
Heart Score for Chest Pain Patients
STEMI patient?: Not applicable
Withdrawal Assessment of Alcohol
Withdrawal Assessment Completed?: Not applicable
Course
Orders/Labs/Results
Orders:
Orders
07/02/24
Electrocardiogram (*1) Stat
Reason for Study: Chest Pain
Comment: DONE
07/02/24 06:54
Calcium CHLORIDE [Calcium Chloride 10% Syringe] 1,000 mg .ROUTE .STK-MED ONE
EPINEPHrine [Adrenalin 1 mg/10 ml] 4 mg .ROUTE .STK-MED ONE
Sodium Bicarbonate 50 meq .ROUTE .STK-MED ONE
07/02/24 06:58
ECG [Electrocardiogram (*1)] Urgent
Reason for Study: Abnormal EKG
CR Chest Portable - 1 View Urgent
Comment:
Reason For Exam: code
Reason Study Needs to be Portable: Patient Unstable
07/02/24 07:00
EKG- Treatment ONCE
07/02/24 07:03
Type+Screen Urgent
Arterial Blood Gas Urgent
%Oxygen/Room Air: 100
Complete Blood Count/With Diff Urgent
Comprehensive Metabolic Panel Urgent
Lactic Acid Urgent
Magnesium Urgent
Manual Differential Urgent
PTT Urgent
Phosphorus Urgent
Prothrombin Time Urgent
Troponin I Urgent
07/02/24 07:07
NORepinephrine 4 MG/250 ML [Levophed] 4 mg in 250 ml .ROUTE .STK-MED
07/02/24 07:11
EPINEPHrine [Adrenalin 1 mg/10 ml] 3 mg .ROUTE .STK-MED ONE
07/02/24 07:19
* Blood Bank Products Urgent
Blood Bank Products: *Packed RBC Leuko(PRBC's)
Quantity: 3
Transfuse Today: Yes
Reason: Bleeding
Emergent Blood Release Stat
Blood Bank Products: *Packed RBC Leuko(PRBC's)
Quantity: 3
Reason: Anemia
A Blood Permit is Required for all Blood.
FOR LAB PICKUP:
Take order sheet to Blood Bank to olive picker blood products in validated cooler
Immediately return to patient care area.
Blood products released by
Blood Products picked up by
Sent to
Date and Time
Massive Tranfusion Protocol Stat
Reason to initiate: Bleeding/Hemorrhaging
An initial MTP pack includes:
�Four (4)) units of type specific, type compatible red blood cells.
�Four (4) units of type specific, or type compatible plasma. Type A thawed plasma may also be used if
type specific or type compatible is not readily available. Thawing plasma takes approximately 20-30
mins. If cryoprecipitate is requested with the initial MTP pack, thaw 3 FFP and 1 CRYOP, followed by the
4th FFP.
�One (1) unit of apheresis platelet (if available). If we do not have platelets available, Blood Bank
places a STAT order for two (2) units.
�Cryoprecipitate will be thawed upon request of the physician. If cryoprecipitate is requested by the
physician, alert physician there is an approximate 20-30 minute wait for thawing. If physician still
requests, thaw 1 pre-pooled cryoprecipitate. There will be no automatic thawing of cryoprecipitate by
the blood bank staff.
�Notify the ED, OR, or patient care area when MTP set is ready.
A Blood Permit is Required for all Blood.
FOR LAB PICKUP:
Take order sheet to Blood Bank to olive picker blood products in validated cooler
Immediately return to patient care area.
Blood products released by
Blood Products picked up by
Sent to
Date and Time
07/02/24 07:26
* Blood Bank Products Urgent
Blood Bank Products: *Plt Single Donor Leuko
Quantity: 1
Transfuse Today: Yes
Reason: Bleeding
07/02/24 07:29
Pantoprazole [Protonix IV] 80 mg IV NOW STA
07/02/24 07:30
Dextrose 5%/Water 1000 ml [D5w] 1,000 ml Sodium Bicarbonate 150 meq IV 150 mls/hr
Pantoprazole 80 mg/100 ml Nss [Protonix] 80 mg in 100 ml IV Q10H
07/02/24 07:32
Consult Gastroenterology [GASTROINTESTINAL CONSULT] Urgent
Consulting Provider: Christin Landry
Was physician already notified: Yes
07/02/24 07:56
Code Status As Directed
Resuscitation Status: Do not resuscitate
Reached after discussion with pt or family/Healthcare POA: Yes
07/02/24 07:57
Morphine Sulfate 4 mg IV NOW STA
DNR Bracelet Application ONCE
07/02/24 08:39
Morphine Sulfate 4 mg .ROUTE .STK-MED ONE
Morphine Sulfate 4 mg IV NOW STA
Abnormal Lab Results
07/02/24 07/02/24
07:02 07:03
WBC 41.4 H* 10^3/uL
(4.8-10.8)
RBC 0.87 L 10^6/uL
(4.20-5.40)
Hgb 2.6 L* g/dL
(12.0-16.0)
Hct 8.3 L* %
(37.0-47.0)
MCHC 31.3 L g/dL
(33.0-37.0)
RDW 18.5 H %
(11.5-14.5)
Plt Count 40 L 10^3/uL
(130-400)
MPV 11.2 H fL
(7.4-10.4)
Abs Immat Gran (auto) 6.1 H 10^3/uL
(0-0.05)
Absolute Neuts (auto) 31.7 H 10^3/uL
(1.4-6.5)
Absolute Monos (auto) 0.8 H 10^3/uL
(0.1-0.6)
Immature Gran % 14.8 H %
(0-0.5)
Neutrophils % 76.7 H %
(42.2-75.2)
Lymphocytes % 6.4 L %
(20.5-51.1)
Abs Neuts (Manual) 34.7 H 10^3/uL
(1.4-6.5)
Band Neutrophils 12 H %
(0-3)
Lymphocytes (Manual) 10 L %
(20-51)
Monocytes (Manual) 1 L %
(2-9)
PT 88.2 H Sec
(11.4-14.6)
INR > 8.0 H*
APTT 115.8 H Sec
(23.4-35.0)
pH < 6.80 L*
(7.35-7.45)
pCO2 25 L mmHg
(32-35)
pO2 14 L* mmHg
(83-108)
Potassium 6.5 H* mmol/L
(3.5-5.1)
Carbon Dioxide < 5 L* mmol/L
(22-30)
BUN 92 H mg/dl
(7-17)
Creatinine 2.8 H mg/dL
(0.6-1.0)
Glucose 432 H mg/dl
(70-99)
Lactic Acid 19.3 H* mmol/L
(0.7-2.0)
Calcium 6.0 L* mg/dl
(8.4-10.2)
Phosphorus 11.9 H mg/dl
(2.5-4.5)
Magnesium 2.7 H mg/dl
(1.6-2.3)
AST 3450 H* U/L
(14-36)
ALT 2374 H* U/L
(0-35)
Troponin I 0.059 H* ng/ml
Total Protein 2.9 L g/dl
(6.3-8.2)
Albumin 1.3 L g/dl
(3.5-5.0)
POC Glucose 387 H mg/dl
(70-99)
Crossmatch IS Only See Detail
07/02/24 07:03
07/02/24 07:03
Vital Signs
Initial and Last Documented VS:
Initial Vital Signs
BP
124/24
07/02/24 06:56
Last Documented Vital Signs
Temp Pulse Resp BP Pulse Ox
33.5 C L 55 15 132/60 100
07/02/24 07:25 07/02/24 07:45 07/02/24 07:45 07/02/24 07:45 07/02/24 07:52
MDM/Problems Addressed
Differential Diagnosis Includes:
Massive GI bleed, renal failure/electrolyte derangement
MDM/Problems Addressed:
64-year-old female presents status post cardiac arrest as described in HPI. On arrival patient has a heart rate in the 70s appears to be A-fib. She has ischemic changes in the setting of recent cardiac arrest�discussed with cardiologym no
indication for emergent cath until stabilized. She was noted to have gross melena on initial exam. She has a very wide pulse pressure with blood pressure 120/30. She is hypothermic. Rest of exam as documented. She arrives with right pretibial
IO in place, reestablished additional IV access send off labs including a CBC and a CMP, coags, type and screen. Sent off an ABG. Stat chest x-ray confirmed ET tube placement. Unfortunately a few minutes after arrival patient had loss of pulses
once again requiring an additional dose of IV epinephrine; also given 1 amp of calcium chloride and 1 amp of sodium bicarbonate, and approximately 3 minutes of CPR. After once again obtaining ROSC blood pressure 140/60.
While resuscitating, lab work started to come back and unfortunately patient has significant anemia with a hemoglobin of 2.6; she is thrombocytopenic with a platelet count of 40; marked leukocytosis to 41. She has severe hyperglycemia with a
glucose of 432, acute renal failure with a creatinine of 2.8 and a potassium of 6.5. Her bicarb is less than 5, pH on ABG is 6.8. INR >8. Troponin elevated and acutely ischemic EKG (discussed with cardiology as above). Initial orders placed for
massive transfusion protocol for massive GI bleeding, orders placed for PPI bolus and infusion, bicarbonate infusion. Unfortunately prognosis is extremely poor, particularly with low pH and marked anemia this is likely not survivable; even if
stabilized, prognosis for meaningful neurologic recovery would be poor after prolonged cardiac arrest requiring 40+ minutes of CPR. Case discussed with GI physician�parthee prognosis is very poor they will evaluate at bedside but will need significant
stabilization prior to any procedures. I had a long and rivka discussion with the patient's son and her brother about clinical situation and poor prognosis (she also has a daughter who lives in [place]; unfortunately her has passed
away). Ultimately they elected to make patient DNR and cease with resuscitative efforts in favor of comfort measures. Family at bedside for palliative extubation, morphine given for comfort.
Shortly after extubation patient noted bradycardic on the monitor, at bedside assessment no palpable pulse and no audible heart sounds, no spontaneous respirations. Patient pronounced at 8:48 AM. She passed with her family at bedside comforting
her. Discussed with medical office scheduler, case released by ME ([facility]).
Chronic conditions affecting care:
Advanced breast cancer
*Radiology
Radiology exam reviewed: preliminary read by ED provider (ET tube in place)
*Pulse Oximetry
Patient hypoxic: no
*EKG
Interpreted by ED Provider?: Yes
Heart Rate: 72
Rate: normal
Rhythm: a-fib
[place]: normal axis
Ischemia: ST elevation (Inferior STEMI)
*Critical Care Note
Total Time (30-74mins, 75-104mins- exclusive of procedures): 51
comment:
Critical care statement: A total of 51 minutes of critical care time was provided for this patient. This includes management of unstable vital signs, evaluation of the patient at bedside, frequent reassessment, discussion with
consultants/hospitalist, and review of pertinent medical records. This time was separate from time utilized to perform any aforementioned documented procedures
Data Reviewed
Review of Other/Old Records Reveals: Labs and Records
Source: records, family and ambulance crew
Patient Management
Discussion with other providers: Paper Final Inspector (Discussed with gastroenterology, discussed with interventional cardiology)
Escalation/DeEscalation of care consider admission/obs:
Comfort measures
ED Attending Note
-
Portions of this chart may have been created with voice recognition software.� Occasional wrong word or��sound alike� substitutions may have occurred due to the inherent limitations of voice recognition software.
Discharge Plan
Departure
Patient Disposition:
Date of Disposition: 07/02/24
Time of Disposition: 08:49
Discharge Problem:
Acute blood loss anemia, Hemorrhagic shock, Acute renal failure, Acute hyperkalemia
Prescriptions:
No Action
amlodipine 5 mg tablet
5 mg PO BID
hydralazine 25 mg Tablet
25 mg PO BID
dexamethasone 2 mg Tablet
4 mg PO UD
Rx Instructions:
take 4mg bid the day before, the day of and the day after treatment
docetaxel 20 mg/2 mL (10 mg/mL) Solution
107 mg IV Q21D
cyclophosphamide 100 mg/mL Solution
852 mg IV Q21D
carvedilol 25 mg tablet
25 mg PO BID
clopidogrel 75 mg tablet
75 mg PO DAILY
aspirin 81 mg tablet,chewable
81 mg PO DAILY
lisinopril 5 mg tablet
5 mg PO DAILY
furosemide 20 mg tablet
20 mg PO DAILY
Referrals:
UNKNOWN - PT NOT,INTERVIEWE [Family Provider] -
Interventions
Interventions:
*Risk Screen - Suicide Last Done: 07/02/24 07:00
*General Assessment Last Done: 07/02/24 08:01
*Neglect/Abuse Screening Last Done: 07/02/24 07:00
ED- Fall Risk Assessment Last Done: 07/02/24 07:52
*ED COVID-19 Vaccine History Last Done: 07/02/24 07:57
ED- Cardiac Assessment Last Done: 07/02/24 07:52
ED- Pulmonary Assessment Last Done: 07/02/24 07:55
Discharge Date and Time
Print Language: AZERBAIJANI
[2024-07-02 07:45] VITALS: BP 132/60
[2024-07-02 07:52] LABS: Lactic Acid 19.3 mmol/L (0.7-2.0)
[2024-07-02 08:00] LABS: PT 88.2 Sec (11.4-14.6)
[2024-07-02 08:01] LABS: APTT 115.8 Sec (23.4-35.0)
[2024-07-02] MEDS: MORPHINE SULFATE 4 MG IV ×2 (08:06→08:40)
[2024-07-02 08:14] LABS: Segmented Neutrophils 72 % (42-75)
[2024-07-02 08:15] LABS: Absolute Neutrophils -Man Diff 34.7 10^3/uL (1.4-6.5); Anisocytosis 1+; Band Neutrophils 12 % (0-3); Hypochromasia 1+; Lymphocytes 10 % (20-51); Metamyelocytes 4 % (-); Monocytes 1 % (2-9); Myelocytes 1 % (-); Normal RBC Morphology No; Nucleated Red Blood Cells 1 (-); Ovalocytes 1+; Platelets Checked Yes; Polychromasia 1+
[2024-07-02 08:16] LABS: Acanthocytes 1+; Schistocytes FEW; Smudge Cells 1+; Total Cells Counted 100
[2024-07-02 08:20] LABS: INR > 8.0
--- NOTE | 2024-07-02 08:30 | CHAP ---
Emotional and spiritual support provided. Prayers of commendation shared. Prayer blanket given.
--- NOTE | 2024-07-02 08:31 | W.PN.UPDATE ---
Update Note
Progress Note Update
Patient had had 40 minute Code, presented with Hgb of 2.6 and comfort measures have already been started per Dr. Katz. GI services not needed.
--- NOTE | 2024-07-02 08:50 | RESPNOTE ---
Patient's family wants to make the patient on comfort care and doesn't want to continue mechanical ventilation for the patient. So as per family request and physician order mechanical ventilation discontinued and extubated the patient with the
presence of RN at 08:35am.
--- NOTE | 2024-07-02 10:14 | ED.ADDNOTE ---
Pronouncement of
-
Called to see patient to pronounce.
No spontaneous heart tones or respirations noted.
Patient not responsive to verbal stimuli.
Patient is pronounced .
Time of : 08:48
Date of : 07/02/24
Cause of : gastrointestinal hemorrhage, renal failure
Family Notified: Yes
== END 2024-07-02 10:21 | disposition expired ==
LOC: EMR 06:53
PROVIDERS: CONSULT PHYSICIAN Internal Medicine Gastroenterology; EMERGENCY PHYSICIAN Emergency Medicine
DX: I46.9 Cardiac arrest, cause unspecified (principal); D62 Acute posthemorrhagic anemia; N17.9 Acute kidney failure, unspecified; R57.8 Other shock; E87.5 Hyperkalemia; I11.0 Hypertensive heart disease with heart failure; I50.9 Heart failure, unspecified; F17.200 Nicotine dependence, unspecified, uncomplicated; I49.01 Ventricular fibrillation; Z46.82 Encounter for fitting and adjustment of non-vascular catheter; Z66 Do not resuscitate; Z79.02 Long term (current) use of antithrombotics/antiplatelets; Z85.3 Personal history of malignant neoplasm of breast; Z86.79 Personal history of other diseases of the circulatory system
CPT/HCPCS: 99291; 96374; 96376; 71045; 80053; 82805; 82962; 83605; 83735; 84100; 84484; 85025; 85610; 85730; 86850; 86900; 86901; 86920; 93005